=== PATIENT | female | born 1955 | race Caucasian/White ===

== ENCOUNTER 2016-12-31 10:10 | Inpatient (IN) | payer MEDICARE, OTHER ==
[~2016-12-31] VITALS: Ht 162.6 cm; Wt 70.5 kg
[~2016-12-31 10:10] MED LIST: ALBU8I INH; OMEP20TA39 PO; PRED50TA PO; TRAZ50TA4 PO; ZITH250T PO; ZOCO20TA PO
[2016-12-31 10:19] VITALS: BP 190/93; PULSE 95; RESP 16; O2SAT 99
[2016-12-31 10:29] VITALS: TEMP 98.8
[2016-12-31] MEDS ORDERED: CITA40TA4 PO (10:47)
--- NOTE | 2016-12-31 10:51 | PD ---
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 She states that she is concerned as she has had a decline in her mental status. She got worse today so she elected to come in. She states she is having a hard time taking care of her. The patient is currently on citalopram and follows with Dr. Chun. They cannot get in with them until January. The patient denies specific complaints by shaking her head no but is very difficult to get history from. PFS Past Medical History Arthritis: No Autoimmune Disease: No Blood Disorders: No Anxiety: Yes Depression: Yes Cancer: No Cardiovascular Problems: No High Cholesterol: No Cerebrovascular Accident: No Diminished Hearing: No Endocrine: No Gastrointestinal Disorders: Yes Genitourinary: No Headaches: Yes Hypertension: Yes Immune Disorder: No Implanted Vascular Access Dvce: Yes Musculoskeletal: No Neurologic: No Psychiatric: Yes Reproductive: No Respiratory: No Migraines: No Seizures: No Sleep Apnea: No Ulcer: Yes Tetanus Vaccination: Unknown Influenza Vaccination: No ?: Not Menopausal: Yes Past Surgical History Abdominal Surgery: No AICD: No Arteriovenous Shunt: No Body Medical Devices: plates in the neck from surgery Cardiac Surgery: No Ear Surgery: No Endocrine Surgery: No Eye Surgery: No Genitourinary Surgery: No Gynecologic Surgery: No Insulin Pump: No Joint Replacement: Yes (L KNEE) Oral Surgery: No Pacemaker: No Thoracic Surgery: No Other Surgery: Yes (BEAST REDUCTION, 3 CYSTS AND FATTY TUMOR AXCILLIA) Social History Alcohol Use: Yes (Occ.) Tobacco Use: No Substance Use: No Allergies-Medications (Allergen,Severity, Reaction): Coded Allergies: Nonsteroidal Anti-Inflammatory Agts (Verified Allergy, Severe, n/v, ) PT STATES THAT SHE IS NOT ALLERGIC TO NSAIDS, BUT DOES HAVE A REACTION TO SOME FORM OF STEROIDS. Pineapple (Unverified Allergy, Severe, Rash, 12/31/16) Raspberry (Unverified Allergy, Severe, Rash, 12/31/16) Doxycycline (Verified Adverse Reaction, Unknown, 12/31/16) NAUSEA Influenza Virus Vaccine (Verified Adverse Reaction, Unknown, 12/31/16) Uncoded Allergies: SOME FORM OF STEROIDS (Adverse Reaction, Unknown, PASSED OUT, 11/28/09) PT DOES NOT REMEMBER NAME OF MEDICATION, SAYS IT WAS SOME FORM OF STEROID. Reported Meds & Prescriptions Reported Meds & Active Scripts Active Reported Citalopram (Citalopram Hydrobromide) 40 Mg Tab 40 Mg PO DAILY Review of Systems Except as stated in HPI: all other systems reviewed are Neg Physical Exam Narrative GENERAL: Well-nourished, well-developed patient. SKIN: Warm and dry. HEAD: Normocephalic and atraumatic. EYES: No injection or drainage. ENT: No nasal drainage noted. NECK: Supple, trachea midline. CARDIOVASCULAR: Regular rate and rhythm RESPIRATORY: No increased effort. No accessory muscle use. GASTROINTESTINAL: Abdomen soft, non-tender, nondistended. NEUROLOGICAL: Awake. Moves all extremities. Clear speech. When asked her name she pulls out her license to repeat it off there. When asked today states she rates her date of . When asked where she was she looks at my coat and reads off [place]. Data Data Last Documented VS Vital Signs Date Time Temp Pulse Resp B/P Pulse Ox O2 Delivery O2 Flow Rate FiO2 12/31/16 12:25 73 16 147/70 98 Room Air 12/31/16 10:29 98.8 Orders Complete Blood Count With Diff (12/31/16 10:38) Basic Metabolic Panel (Bmp) (12/31/16 10:38) Urinalysis - C+S If Indicated (12/31/16 10:38) Ct Brain W/O Iv Contrast(Rout) (12/31/16 ) Iv Access Insert/Monitor (12/31/16 10:38) Ecg Monitoring (12/31/16 10:38) Psych Screen (12/31/16 10:38) Drug Screen, Random Urine (12/31/16 10:38) Alcohol (Ethanol) (12/31/16 10:38) Labs Laboratory Tests Test 12/31/16 12/31/16 11:00 11:05 Urine Collection Type CLEAN CATCH Urine Color STRAW Urine Turbidity CLEAR Urine pH 6.0 Urine Specific [place] 1.004 Urine Protein NEG mg/dL Urine Glucose (UA) NEG mg/dL Urine Ketones NEG mg/dL Urine Occult Blood NEG Urine Nitrite NEG Urine Bilirubin NEG Urine Leukocyte Esterase NEG Urine WBC 0-2 /hpf Urine Squamous Epithelial 0-5 /hpf Cells Microscopic Urinalysis Comment CULT NOT INDICATED Urine Collection Time 11:00 Urine Opiates Screen NEG Urine Barbiturates Screen NEG Urine Amphetamines Screen NEG Urine Benzodiazepines Screen NEG Urine Cocaine Screen NEG Urine Cannabinoids Screen NEG White Blood Count 5.3 TH/MM3 Red Blood Count 4.48 MIL/MM3 Hemoglobin 13.2 GM/DL Hematocrit 38.6 % Mean Corpuscular Volume 86.2 FL Mean Corpuscular Hemoglobin 29.4 PG Mean Corpuscular Hemoglobin 34.1 % Concent Red Cell Distribution Width 13.0 % Platelet Count 168 TH/MM3 Mean Platelet Volume 6.9 FL Neutrophils (%) (Auto) 70.9 % Lymphocytes (%) (Auto) 22.2 % Monocytes (%) (Auto) 5.6 % Eosinophils (%) (Auto) 0.6 % Basophils (%) (Auto) 0.7 % Neutrophils # (Auto) 3.8 TH/MM3 Lymphocytes # (Auto) 1.2 TH/MM3 Monocytes # (Auto) 0.3 TH/MM3 Eosinophils # (Auto) 0.0 TH/MM3 Basophils # (Auto) 0.0 TH/MM3 CBC Comment DIFF FINAL Differential Comment Sodium Level 141 MEQ/L Potassium Level 3.8 MEQ/L Chloride Level 105 MEQ/L Carbon Dioxide Level 29.8 MEQ/L Anion Gap 6 MEQ/L Blood Urea Nitrogen 14 MG/DL Creatinine 0.68 MG/DL Estimat Glomerular Filtration 87 ML/MIN Rate Random Glucose 97 MG/DL Calcium Level 8.7 MG/DL Ethyl Alcohol Level LESS THAN 3 MG/DL [facility] Medical Decision Making Medical Screen Exam Complete: Yes Emergency Medical Condition: Yes Medical Record Reviewed: Yes (past history confirm, prior psychiatric admission in 2013 with brief psychotic episode on Seroquel) Interpretation(s) CBC & BMP Diagram 12/31/16 11:05 Last [address] 12/31/16 0000 Signed Impressions: Service Date/Time: Saturday, December 31, 2016 11:39 - CONCLUSION: Negative for an acute process. Brannon Rebolledo MD FACR Differential Diagnosis Hyponatremia, intracranial, UTI, brief psychotic episode.... Narrative Course Will check blood work, urinalysis, CT brain and and reevaluate ed workup no acute, medically cleared at 1200 for psychiatric disposition with psych screening Diagnosis Primary Impression: Altered mental status, unspecified Meme Alvarez MD Dec 31, 2016 10:51
[2016-12-31 11:16] LABS: AUTOMATED NEUTROPHIL # 3.8 TH/MM3 (1.8-7.7); BASOPHIL % 0.7 % (0.0-2.0); EOSINOPHIL % 0.6 % (0.0-4.0); HEMATOCRIT 38.6 % (35.0-46.0); HEMO FLAGS DIFF FINAL; LYMPH % 22.2 % (9.0-44.0); LYMPHOCYTE # 1.2 TH/MM3 (1.0-4.8); MEAN CELL VOLUME 86.2 FL (80.0-100.0); MEAN CORPUSCULAR HEMOGLOBIN 29.4 PG (27.0-34.0); MEAN CORPUSCULAR HGB CONC 34.1 % (32.0-36.0); MONO % 5.6 % (0.0-8.0); NEUT % 70.9 % (16.0-70.0); PLATELET COUNT 168 TH/MM3 (150-450); RED BLOOD COUNT 4.48 MIL/MM3 (4.00-5.30); WHITE BLOOD COUNT 5.3 TH/MM3 (4.0-11.0)
[2016-12-31 11:18] LABS: BLOOD, URINE NEG (NEG); GLUCOSE,URINE NEG (NEG); KETONE, URINE NEG (NEG); NITRITE,URINE NEG (NEG)
[2016-12-31 11:24] LABS: CHLORIDE 105 MEQ/L (98-107); POTASSIUM 3.8 MEQ/L (3.5-5.1); SODIUM (NA) 141 MEQ/L (136-145)
[2016-12-31 11:26] LABS: COMMENT (UR) CULT NOT INDICATED; CULTURE IF INDICATED CULT NOT INDICATED; METHOD OF COLLECTION CLEAN CATCH; SQUAMOUS EPITHELIAL CELL URINE 0-5 /hpf (0-5); URINE COLOR STRAW (YELLW/STRAW); WBC, URINE 0-2 /hpf (0-5)
[2016-12-31 11:27] LABS: ANION GAP 6 MEQ/L (5-15); BICARBONATE 29.8 MEQ/L (21.0-32.0); BLOOD UREA NITROGEN 14 MG/DL (7-18)
[2016-12-31 11:30] LABS: GLOMERULAR FILTRATION RATE 87 ML/MIN (>89)
[2016-12-31 11:35] LABS: BARBITURATES, URINE NEG (NEG)
[2016-12-31 11:36] LABS: AMPHETAMINE, URINE NEG (NEG)
[2016-12-31 11:39] LABS: COCAINE, URINE NEG (NEG)
--- NOTE | 2016-12-31 11:58 | RADHPO ---
EXAM DATE/TIME: 12/31/2016 11:39 [facility] COMPARISON: CT BRAIN W/O CONTRAST, May 02, 2014, 15:18. INDICATIONS : Confusion for several years. Recent decline in mental status. RADIATION DOSE: 63.06 CTDIvol (mGy) MEDICAL HISTORY : Hypertension. SURGICAL HISTORY : Orthopedic surgery. ENCOUNTER: Initial ACUITY: >1 yr PAIN SCALE: 0/10 LOCATION: cranial TECHNIQUE: Multiple contiguous axial images were obtained of the head. Using automated exposure control and adjustment of the mA and/or kV according to patient size, radiation dose was kept as low as reasonably achievable to obtain optimal diagnostic quality images. FINDINGS: CEREBRUM: The ventricles are normal for age. No evidence of midline shift, mass lesion, hemorrha ge or acute infarction. No extra-axial fluid collections are seen. POSTERIOR FOSSA: The cerebellum and brainstem are intact. The 4th ventricle is midline. The cer ebellopontine angle is unremarkable. EXTRACRANIAL: The visualized portion of the orbits is intact. SKULL: The calvaria is intact. No evidence of skull fracture. CONCLUSION: Negative for an acute process. Brannon Rebolledo MD FACR on December 31, 2016 at 11:56 Board Certified Radiologist. This report was verified electronically.
[2016-12-31 12:25] VITALS: BP 147/70; PULSE 73; RESP 16; O2SAT 98
[2016-12-31] MEDS ORDERED: ALUMINUM/MAGNESIUM/SIMETH 30 ML CUP PO PRN (16:45)
[2016-12-31] MEDS ORDERED: MAGNESIUM HYDROXIDE SUSP 30 ML CUP PO PRN (16:45)
[2016-12-31 17:30] VITALS: BP 131/62; PULSE 71; RESP 18; TEMP 98.1; O2SAT 97
[2016-12-31 22:42] VITALS: BP 188/94; PULSE 65; RESP 20; TEMP 98.2; O2SAT 98
[2017-01-01 06:36] VITALS: BP 200/86; PULSE 73; RESP 18; TEMP 98.3; O2SAT 98
[2017-01-01 07:15] VITALS: BP 167/82
[2017-01-01 08:59] LABS: ANION GAP 7 MEQ/L (5-15); BICARBONATE 29.6 MEQ/L (21.0-32.0); BLOOD UREA NITROGEN 10 MG/DL (7-18); CHLORIDE 102 MEQ/L (98-107); GLOMERULAR FILTRATION RATE 83 ML/MIN (>89); LDL CHOLESTEROL 53 MG/DL (0-99); POTASSIUM 3.3 MEQ/L (3.5-5.1); SODIUM (NA) 139 MEQ/L (136-145)
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
[2017-01-01] MEDS ORDERED: MAGNESIUM HYDROXIDE SUSP 30 ML CUP PO PRN (12:00)
[2017-01-01] MEDS ORDERED: ALUMINUM/MAGNESIUM/SIMETH 30 ML CUP PO PRN (12:00)
[2017-01-01] MEDS ORDERED: hydrOXYzine HCL 50 MG TAB PO PRN (12:00)
[2017-01-01] MEDS ORDERED: ACETAMINOPHEN 325 MG TAB PO PRN (12:00)
[2017-01-01] MEDS ORDERED: diphenhydrAMINE HCL 50 MG CAP PO PRN (12:00)
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
[2017-01-01 12:48] LABS: HEMOGLOBIN A1a 1.1 %; HEMOGLOBIN A1b 1.6 %; HEMOGLOBIN Ao 86.5 %; HEMOGLOBIN LA1C 1.7 %; HEMOGLOBIN P3 3.4 %
[2017-01-01 19:45] VITALS: BP 153/78; PULSE 82; RESP 17; TEMP 98.8; O2SAT 97
[2017-01-02 06:00] VITALS: BP 143/63; PULSE 80; RESP 18; TEMP 98.2; O2SAT 95
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
[2017-01-02 08:48] LABS: AUTOMATED NEUTROPHIL # 3.3 TH/MM3 (1.8-7.7); BASOPHIL % 0.5 % (0.0-2.0); EOSINOPHIL % 0.9 % (0.0-4.0); HEMATOCRIT 40.2 % (35.0-46.0); HEMO FLAGS DIFF FINAL; LYMPH % 28.6 % (9.0-44.0); LYMPHOCYTE # 1.5 TH/MM3 (1.0-4.8); MEAN CELL VOLUME 85.1 FL (80.0-100.0); MEAN CORPUSCULAR HEMOGLOBIN 29.5 PG (27.0-34.0); MEAN CORPUSCULAR HGB CONC 34.6 % (32.0-36.0); MONO % 7.4 % (0.0-8.0); NEUT % 62.6 % (16.0-70.0); PLATELET COUNT 160 TH/MM3 (150-450); RED BLOOD COUNT 4.72 MIL/MM3 (4.00-5.30); RED CELL DISTRIBUTION WIDTH 13.9 % (11.6-17.2); WHITE BLOOD COUNT 5.3 TH/MM3 (4.0-11.0)
[2017-01-02] MEDS: CITALOPRAM HYDROBROMIDE 40 MG TAB PO SCH (09:09)
[2017-01-02 09:14] LABS: ALKALINE PHOSPHATASE 67 U/L (45-117); ALT (GPT) 23 U/L (10-53); ANION GAP 9 MEQ/L (5-15); AST (GOT) 13 U/L (15-37); BICARBONATE 28.8 MEQ/L (21.0-32.0); BLOOD UREA NITROGEN 13 MG/DL (7-18); CHLORIDE 100 MEQ/L (98-107); GLOMERULAR FILTRATION RATE 82 ML/MIN (>89); POTASSIUM 3.5 MEQ/L (3.5-5.1); SODIUM (NA) 138 MEQ/L (136-145); TOTAL BILIRUBIN ADULT 0.5 MG/DL (0.2-1.0)
--- NOTE | 2017-01-02 13:42 | PD.PN.STU ---
Subjective Remarks Patient seen in day room by SHYAM Stover. Conversation is somewhat limited on the patient's part. She states she is feeling down but overall is feeling better than yesterday. She reports sleeping very well last night, but cannot indicate how many hours she slept. She also states her appetite is good as she ate both breakfast and lunch. Objective Vitals Vital Signs Date Time Temp Pulse Resp B/P Pulse Ox O2 Delivery O2 Flow Rate FiO2 01/02/17 06:00 98.2 80 18 143/63 95 01/01/17 19:45 98.8 82 17 153/78 97 I/O 01/01/17 01/01/17 01/01/17 01/02/17 01/02/17 01/02/17 07:00 15:00 23:00 07:00 15:00 23:00 Intake Total 1200 ml 480 ml 0 ml 960 ml Balance 1200 ml 480 ml 0 ml 960 ml Intake Oral 1200 ml 480 ml 0 ml 960 ml # Voids 1 2 1 1 1 Result Diagram: 01/02/17 0730 01/02/17 0730 Objective Remarks Patient is a 61 yo female appearing older than her stated age, alert, orientation questionable, interviewed while sitting in the day room watching a movie. She was dressed appropriately and maintaining basic hygiene although she appears mildly disheveled with unkempt hair. She initially did not acknowledge my presence and stood up to help another immobile patient clean up a spilled drink. She then engaged in conversation, although limited. Her eye contact was fair with rather coordinated movements of her extremities. Her mood was described as depressed and her affect was appropriate for that statement, being rather labile. She was smiling when talking about food and sleep but quickly became tearful and fearful when talking about her 3 dogs at home. Her speech was moderate volume, decreased clarity and quantity, normally answered in short one-word phrases with some mild echolalia present. Her attention and concentration was involved and short term memory is intact. She does not appear to be oriented to place, time. Her though patterns were unclear. She has poor insight and judgment. Alert: Yes [place]: Person Mood: Sad Affect: Labile Memory Intact: Comment (impaired) Hallucinations: None Delusions: No Delusion Type: No Suicidal: Ideation (denies) Homicidal: Ideation (denies) Insight/Judgement: Very poor A/P Assessment and Plan Impression: 61 year old female with PMHx of prior brief psychotic episodes, currently experiencing exacerbation of major depressive disorder with marked bereavement over the loss of her mother last month. Problem list: MDD acute exacerbation, hypertension Plan: Continue citalopram 40 mg and check on contact brother to gain further insight. LOS: TBD by medical team and legal entities based on patients progress Justification: At this time, patient would likely decompensate if placed in a lower level of care Discharge Planning To be determined. Jolanta Bernard M3 Jan 02, 2017 13:42
--- NOTE | 2017-01-02 14:47 | HHI.PYPN ---
Subjective Remarks Patient seen in her room with nurse Daisy and medical student Jolanta, patient initially calm though diffusely confused with some vague disorientation as to time place and situation. However on further talking with their asking about her pet dogs at home patient became quite anxious tremulous tearful intense and labile list as if appearing to be having a panic attack. Though there was a impression of psychosis with that also. Reviewing admission from pleasant 14 patient was discharged on low doses of Seroquel will continue Seroquel 25 mg 3 times a day at this time Review of Systems Except as stated in HPI: all other systems reviewed are Neg Objective Alert: Yes [place]: Person Mood: Agitated, Angry, Anxious, Calm, Depressed Affect: Labile Memory Intact: Comment Hallucinations: Other (poor denies) Delusions: Yes Delusion Type: Paranoid (vaguely) Suicidal: Ideation (denies) Homicidal: Ideation (denies) Insight/Judgement Poor Labs Test 01/02/17 07:30 White Blood Count 5.3 TH/MM3 Red Blood Count 4.72 MIL/MM3 Hemoglobin 13.9 GM/DL Hematocrit 40.2 % Mean Corpuscular Volume 85.1 FL Mean Corpuscular Hemoglobin 29.5 PG Mean Corpuscular Hemoglobin 34.6 % Concent Red Cell Distribution Width 13.9 % Platelet Count 160 TH/MM3 Mean Platelet Volume 7.7 FL Neutrophils (%) (Auto) 62.6 % Lymphocytes (%) (Auto) 28.6 % Monocytes (%) (Auto) 7.4 % Eosinophils (%) (Auto) 0.9 % Basophils (%) (Auto) 0.5 % Neutrophils # (Auto) 3.3 TH/MM3 Lymphocytes # (Auto) 1.5 TH/MM3 Monocytes # (Auto) 0.4 TH/MM3 Eosinophils # (Auto) 0.0 TH/MM3 Basophils # (Auto) 0.0 TH/MM3 CBC Comment DIFF FINAL Differential Comment Sodium Level 138 MEQ/L Potassium Level 3.5 MEQ/L Chloride Level 100 MEQ/L Carbon Dioxide Level 28.8 MEQ/L Anion Gap 9 MEQ/L Blood Urea Nitrogen 13 MG/DL Creatinine 0.72 MG/DL Estimat Glomerular Filtration 82 ML/MIN Rate Random Glucose 90 MG/DL Calcium Level 9.0 MG/DL Total Bilirubin 0.5 MG/DL Aspartate Amino Transf 13 U/L (AST/SGOT) Alanine Aminotransferase 23 U/L (ALT/SGPT) Alkaline Phosphatase 67 U/L Total Protein 6.9 GM/DL Albumin 3.8 GM/DL Free Thyroxine 0.90 NG/DL Thyroid Stimulating Hormone 1.270 uIU/ML 3rd Gen Vitals/IOs Vital Signs Date Time Temp Pulse Resp B/P Pulse Ox O2 Delivery O2 Flow Rate FiO2 01/02/17 06:00 98.2 80 18 143/63 95 12/31/16 17:30 Room Air Intake and Output 01/01/17 01/01/17 01/02/17 08:00 16:00 00:00 Intake Total 1200 ml 480 ml Balance 1200 ml 480 ml Assessment & Plan Problem List: (1) Brief psychotic disorder ICD Code: F23 Assessment & Plan Estimated LOS: days patient continues quite labile anxious with psychotic features. 2 medication adjustment above Justification for Cont. Inpt. At this time patient will decompensate placed in a lower level of care Discharge Planning To be determined Request HC Surrog/Guard Advoc?: Yes Rai Huggins MD Jan 02, 2017 14:47
[2017-01-02] MEDS ORDERED: QUEtiapine FUMARATE 25 MG TAB PO SCH (18:00)
[2017-01-02 18:08] VITALS: BP 128/68; PULSE 73; RESP 18; TEMP 99; O2SAT 96
[2017-01-02] MEDS: ACETAMINOPHEN 325 MG TAB PO PRN (23:44)
[2017-01-03 06:09] VITALS: BP 102/58; PULSE 71; RESP 18; TEMP 97.7; O2SAT 100
[2017-01-03] MEDS: CITALOPRAM HYDROBROMIDE 40 MG TAB PO SCH (09:00)
--- NOTE | 2017-01-03 11:38 | HHI.HP ---
History of Present Illness Service Primary Care Primary Care Physician Jonel Guidry, DO Admission Diagnosis MDD Diagnoses: (1) Altered mental status, unspecified Diagnosis: Principal (2) Major depressive disorder, recurrent episode, moderate with mixed features Diagnosis: Principal (3) Brief psychotic disorder Diagnosis: Principal (4) Gout Diagnosis: Secondary (5) Osteoarthritis Diagnosis: Secondary (6) Hypertension Diagnosis: Secondary (7) Dyslipidemia Diagnosis: Secondary History of Present Illness 62-year-old female presents with a decline in her mental status and began to have progressive difficulty with self care. Her history is difficult to obtain and the story changes with each interviewer. The patient currently follows with Dr. Chun for a PMH of MDD, htn, hlp, gout, peripheral neuropathy and RLS. She was previously on citalopram but has been somewhat non-compliant with follow-up. She states that she has no living family and denies a caregiver, but was brought to the ED by her caregiver, per Dr. Alvarez's note. Today, she is mostly cooperative, but still guarded. She states she wants to go home, but cannot tell me where home is. We have been consulted for medical management of her comorbidities. Review of Systems ROS Limitations: Poor Historian, Other (Unreliable d/t psychiatric disease, but denies any discomfort in 12 system review.) Past Family Social History Allergies: Coded Allergies: Nonsteroidal Anti-Inflammatory Agts (Verified Allergy, Severe, n/v, ) PT STATES THAT SHE IS NOT ALLERGIC TO NSAIDS, BUT DOES HAVE A REACTION TO SOME FORM OF STEROIDS. Pineapple (Unverified Allergy, Severe, Rash, 12/31/16) Raspberry (Unverified Allergy, Severe, Rash, 12/31/16) Doxycycline (Verified Adverse Reaction, Unknown, 12/31/16) NAUSEA Influenza Virus Vaccine (Verified Adverse Reaction, Unknown, 12/31/16) Uncoded Allergies: SOME FORM OF STEROIDS (Adverse Reaction, Unknown, PASSED OUT, 11/28/09) PT DOES NOT REMEMBER NAME OF MEDICATION, SAYS IT WAS SOME FORM OF STEROID. Past Medical History Osteoarthritis Hyperlipidemia Hypertension Gout Neuropathy Major depressive disorder Restless leg syndrome Past Surgical History LTKA Cervical diskectomy with fusion in with redo. Excision of 3 breast cysts in Lipoma removal from R axilla Tonsillectomy and adenoidectomy Reported Medications Reported Meds & Active Scripts Active Reported Citalopram (Citalopram Hydrobromide) 40 Mg Tab 40 Mg PO DAILY Active Ordered Medications Current Medications Medications (Trade) Dose Ordered Sig/Minal Route Start Time Stop Time Status Last Admin (Tylenol) 650 mg Q4H PRN PO 12/31/16 16:45 (Milk Of Magnesia Liq) 30 ml DAILY PRN PO 12/31/16 16:45 (Mag-Al Plus Susp Liq) 30 ml Q6H PRN PO 12/31/16 16:45 (CeleXA) 40 mg DAILY PO 01/02/17 09:00 Hold 01/02/17 09:09 (Benadryl) 50 mg HS PRN PO 01/01/17 12:00 Hold (Atarax) 50 mg Q6H PRN PO 01/01/17 12:00 Hold (SEROquel) 25 mg TID PO 01/02/17 18:00 Hold Family History Both parents . One brother reportedly from renal cancer, per records. Social History Quit smoking in 1973, denies any illicits or ETOH Physical Exam Vital Signs Vital Signs Date Time Temp Pulse Resp B/P Pulse Ox O2 Delivery O2 Flow Rate FiO2 01/03/17 06:09 97.7 71 18 102/58 100 01/02/17 18:08 99.0 73 18 128/68 96 Physical Exam GENERAL: This is a well-nourished, well-developed patient, in no apparent distress, resting in bed. SKIN: No rashes, ecchymoses or lesions. Cool and dry. HEAD: Atraumatic. Normocephalic. EYES: Pupils equal round and reactive. Extraocular motions intact. No scleral icterus. No injection or drainage. ENT: Throat without erythema, tonsillar hypertrophy or exudate. Uvula midline. Airway patent. NECK: Trachea midline. No JVD or lymphadenopathy. Supple, nontender. CARDIOVASCULAR: Regular rate and rhythm without murmurs, gallops, or rubs. RESPIRATORY: Clear to auscultation. Breath sounds equal bilaterally. No wheezes , rales, or rhonchi. Diminished at bases. GASTROINTESTINAL: Abdomen soft, non-tender, nondistended. No hepato-splenomegaly , or palpable masses. No guarding. MUSCULOSKELETAL: Extremities without clubbing, cyanosis, trace-1+ LE edema. No calf tenderness. NEUROLOGICAL: Awake and alert. Normal speech. PSYCHIATRY: Guarded, answers questions, but answers vary from previous. Result Diagram: 01/02/17 0730 01/02/17 0730 Imaging Last Impressions Head CT 12/31/16 0000 Signed Impressions: Service Date/Time: Saturday, December 31, 2016 11:39 - CONCLUSION: Negative for an acute process. Brannon Rebolledo MD FACR Assessment and Plan Problem List: (1) Altered mental status, unspecified Status: Acute Plan: Still guarded, but appears oriented to self, place and time. (2) Major depressive disorder, recurrent episode, moderate with mixed features Status: Chronic Plan: Management per Dr. Huggins (3) Osteoarthritis Status: Chronic Plan: C/O some hand discomfort. States an allergy to NSAIDS, which cause hallucinations. Can use tylenol PRN. (4) Hypertension Status: Chronic Plan: Exacerbated by mood disorder, not on medications. When calm, BP remains in the low normal range. Manage triggers. (5) Dyslipidemia Status: Resolved Plan: Well controlled on diet. Not on statins. Assessment and Plan Pt. remains unable to care for herself. Will follow with Dr. Suazo, appreciate the consultation. D/W pt., RN, Dr. Guidry. Problem Qualifiers (1) Osteoarthritis: Qualified Code: M15.9 - Osteoarthritis of multiple joints, unspecified osteoarthritis type (2) Hypertension: Qualified Code: I10 - Essential hypertension Babita Bennett Jan 03, 2017 11:38
[2017-01-03 18:00] VITALS: BP 155/101; PULSE 83; RESP 18; TEMP 97.9; O2SAT 98
--- NOTE | 2017-01-03 19:23 | HHI.PYPN ---
Subjective Remarks Pt seen and discussed with staff. Pt remains bizarre with significant mood lability. No aggression. No SI/HI Objective Alert: Yes [place]: Person Mood: Other (labile) Affect: Other (bizarre, elevated affect) Memory Intact: Comment Hallucinations: Other (appears internally preoccupied) Delusions: Yes Delusion Type: Paranoid (vaguely) Suicidal: Ideation (denies) Homicidal: Ideation (denies) Insight/Judgement poor Vitals/IOs Vital Signs Date Time Temp Pulse Resp B/P Pulse Ox O2 Delivery O2 Flow Rate FiO2 01/03/17 18:00 97.9 83 18 155/101 98 12/31/16 17:30 Room Air Intake and Output 01/02/17 01/02/17 01/03/17 08:00 16:00 00:00 Intake Total 0 ml 1320 ml 480 ml Balance 0 ml 1320 ml 480 ml Assessment & Plan Problem List: (1) Brief psychotic disorder ICD Code: F23 Assessment & Plan Continue current tx plan. Estimated LOS: days Justification for Cont. Inpt. 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
[2017-01-04 05:13] VITALS: BP_SYST 103; BP_SYST 132; BP_DIAS 52; BP_DIAS 69; PULSE 65; PULSE 70; RESP 18; TEMP 97.8; TEMP 98.1; O2SAT 97; O2SAT 98
--- NOTE | 2017-01-04 08:55 | HHI.PR ---
Subjective Remarks Up OOB, guarded responses, confused. Objective Vital Signs Date Time Temp Pulse Resp B/P Pulse Ox O2 Delivery O2 Flow Rate FiO2 01/04/17 05:13 98.1 65 18 103/52 98 01/03/17 18:00 97.9 83 18 155/101 98 I/O 01/03/17 01/03/17 01/03/17 01/04/17 01/04/17 01/04/17 07:00 15:00 23:00 07:00 15:00 23:00 Intake Total 0 ml 480 ml 1680 ml 0 ml Balance 0 ml 480 ml 1680 ml 0 ml Intake Oral 0 ml 480 ml 1680 ml 0 ml # Voids 1 2 2 Result Diagram: 01/02/17 0730 01/02/17 0730 Imaging Last Impressions Head CT 12/31/16 0000 Signed Impressions: Service Date/Time: Saturday, December 31, 2016 11:39 - CONCLUSION: Negative for an acute process. Brannon Rebolledo MD FACR Objective Remarks GENERAL: Well-nourished, well-developed patient. SKIN: Warm and dry. HEAD: Normocephalic. EYES: No scleral icterus. No injection or drainage. NECK: Supple, trachea midline. No JVD or lymphadenopathy. CARDIOVASCULAR: Regular rate and rhythm without murmurs, gallops, or rubs. RESPIRATORY: Breath sounds equal bilaterally. No accessory muscle use. GASTROINTESTINAL: Abdomen soft, non-tender, nondistended. EXTREMITIES: No cyanosis, or edema. NEUROLOGICAL: Awake, alert, and oriented to self, intermittently to place. Non- focal. PSYCHIATRIC: greets examiner with smile, answers guarded, not making sense. Medications and IVs Current Medications Medications (Trade) Dose Ordered Sig/Minal Route Start Time Stop Time Status Last Admin (Tylenol) 650 mg Q4H PRN PO 12/31/16 16:45 (Milk Of Magnesia Liq) 30 ml DAILY PRN PO 12/31/16 16:45 (Mag-Al Plus Susp Liq) 30 ml Q6H PRN PO 12/31/16 16:45 (CeleXA) 40 mg DAILY PO 01/02/17 09:00 Hold 01/02/17 09:09 (Benadryl) 50 mg HS PRN PO 01/01/17 12:00 Hold (Atarax) 50 mg Q6H PRN PO 01/01/17 12:00 Hold (SEROquel) 25 mg TID PO 01/02/17 18:00 Hold Assessment and Plan Problem List: (1) Altered mental status, unspecified Status: Acute Plan: Still guarded, but appears oriented to self and intermittently to place. Answers change from exam to exam. (2) Major depressive disorder, recurrent episode, moderate with mixed features Status: Chronic Plan: Management per Dr. Huggins. Due to pts incapacity and lack of POA/ family contact, Celexa and seroquel stopped as no consent could be given. Pending court appointed guardian. (3) Osteoarthritis Status: Chronic Plan: C/O some hand discomfort. States an allergy to NSAIDS, which cause hallucinations, but in another interview, states she is not. Can use tylenol PRN. (4) Hypertension Status: Chronic Plan: Exacerbated by mood disorder, not on medications. When calm, BP remains in the low normal range. Manage triggers. (5) Dyslipidemia Status: Resolved Plan: Well controlled on diet. Not on statins. Assessment and Plan Pt. remains unable to care for herself. Will follow with Dr. Suazo, appreciate the consultation. D/W pt., RN, Dr. Guidry. Problem Qualifiers (1) Osteoarthritis: Qualified Code: M15.9 - Osteoarthritis of multiple joints, unspecified osteoarthritis type (2) Hypertension: Qualified Code: I10 - Essential hypertension Babita Bennett Jan 04, 2017 08:55
--- NOTE | 2017-01-04 19:41 | HHI.PYPN ---
Subjective Remarks Pt seen and discussed with staff. She remains bizarre. She has been selectively mute at times today. No aggression. She denies SI/HI. Objective Alert: Yes [place]: Person Mood: Other (labile) Affect: Other (bizarre, elevated affect) Memory Intact: Comment Hallucinations: Other (appears internally preoccupied) Delusions: Yes Delusion Type: Paranoid (vaguely) Suicidal: Ideation (denies) Homicidal: Ideation (denies) Insight/Judgement poor Vitals/IOs Vital Signs Date Time Temp Pulse Resp B/P Pulse Ox O2 Delivery O2 Flow Rate FiO2 01/04/17 05:13 98.1 65 18 103/52 98 12/31/16 17:30 Room Air Intake and Output 01/03/17 01/03/17 01/04/17 08:00 16:00 00:00 Intake Total 240 ml 720 ml 1200 ml Balance 240 ml 720 ml 1200 ml Assessment & Plan Problem List: (1) Brief psychotic disorder ICD Code: F23 Assessment & Plan Continue current tx plan Estimated LOS: days Justification for Cont. Inpt. impairments in self care and reality construction Request HC Surrog/Guard Advoc?: Yes Olivia Forbes MD Jan 04, 2017 19:41
[2017-01-04 20:35] VITALS: BP 138/87; PULSE 82; RESP 22; TEMP 97.6; O2SAT 97
[2017-01-05 05:42] VITALS: BP 134/69; PULSE 68; RESP 16; TEMP 98; O2SAT 96
--- NOTE | 2017-01-05 13:48 | HHI.PR ---
Subjective Remarks Up OOB, wants to go home, very anxious. Objective Vital Signs Date Time Temp Pulse Resp B/P Pulse Ox O2 Delivery O2 Flow Rate FiO2 01/05/17 05:42 98.0 68 16 134/69 96 01/04/17 20:35 97.6 82 22 138/87 97 I/O 01/04/17 01/04/17 01/04/17 01/05/17 01/05/17 01/05/17 07:00 15:00 23:00 07:00 15:00 23:00 Intake Total 0 ml 960 ml 0 ml Balance 0 ml 960 ml 0 ml Intake Oral 0 ml 960 ml 0 ml # Voids 2 1 # Bowel Movements 0 Result Diagram: 01/02/1772901/02/17 0730 Objective Remarks GENERAL: Well-nourished, well-developed patient. SKIN: Warm and dry. HEAD: Normocephalic. EYES: No scleral icterus. No injection or drainage. NECK: Supple, trachea midline. No JVD or lymphadenopathy. CARDIOVASCULAR: Regular rate and rhythm without murmurs, gallops, or rubs. RESPIRATORY: Breath sounds equal bilaterally. No accessory muscle use. GASTROINTESTINAL: Abdomen soft, non-tender, nondistended. EXTREMITIES: No cyanosis, or edema. NEUROLOGICAL: Awake, alert, and oriented to self, intermittently to place. Non- focal. PSYCHIATRIC: tearful, wants to go home with "Mo". Medications and IVs Current Medications Medications (Trade) Dose Ordered Sig/Minal Route Start Time Stop Time Status Last Admin (Tylenol) 650 mg Q4H PRN PO 12/31/16 16:45 (Milk Of Magnesia Liq) 30 ml DAILY PRN PO 12/31/16 16:45 (Mag-Al Plus Susp Liq) 30 ml Q6H PRN PO 12/31/16 16:45 (CeleXA) 40 mg DAILY PO 01/02/17 09:00 Hold 01/02/17 09:09 (Benadryl) 50 mg HS PRN PO 01/01/17 12:00 Hold (Atarax) 50 mg Q6H PRN PO 01/01/17 12:00 Hold (SEROquel) 25 mg TID PO 01/02/17 18:00 Hold Assessment and Plan Problem List: (1) Altered mental status, unspecified Status: Acute Plan: Very anxioius today, tearful, wants to go home. Alert, recognizes examiner, pacing. (2) Major depressive disorder, recurrent episode, moderate with mixed features Status: Chronic Plan: Management per Dr. Huggins. Due to pts incapacity and lack of POA/ family contact, Celexa and seroquel stopped as no consent could be given. Pending court appointed guardian. (3) Osteoarthritis Status: Chronic Plan: Can use tylenol PRN. (4) Hypertension Status: Chronic Plan: Exacerbated by mood disorder, not on medications. When calm, BP remains in the low normal range. Manage triggers. (5) Dyslipidemia Status: Resolved Plan: Well controlled on diet. Not on statins. Assessment and Plan Pt. remains unable to care for herself. D/W RN the possibility of expediting court date for guardian appointment to allow medication of pt. anxiety. Will follow with Dr. Suazo, appreciate the consultation. D/W pt., RN, Dr. Guidry. Problem Qualifiers (1) Osteoarthritis: Qualified Code: M15.9 - Osteoarthritis of multiple joints, unspecified osteoarthritis type (2) Hypertension: Qualified Code: I10 - Essential hypertension Babita Bennett Jan 05, 2017 13:48
--- NOTE | 2017-01-05 14:52 | HHI.PYPN ---
Subjective Remarks Patient discussed with treatment team and medical student Jolanta, chart reviewed, patient seen on unit. Patient remains isolative quite labile at times angry screaming tearful and somewhat aggressive. At present time we do not have pressure from health care surrogate to offer scheduled medications. Also behaviors have not been to such degree that the justifies as needed or ETO medication. We await permission from [place] with guardian advocate to show more aggressive medication management Review of Systems Except as stated in HPI: all other systems reviewed are Neg Objective Alert: Yes [place]: Person Mood: Other (labile) Affect: Other (bizarre, elevated affect) Memory Intact: Comment Hallucinations: Other (appears internally preoccupied) Delusions: Yes Delusion Type: Paranoid (vaguely) Suicidal: Ideation (denies) Homicidal: Ideation (denies) Insight/Judgement Very poor Vitals/IOs Vital Signs Date Time Temp Pulse Resp B/P Pulse Ox O2 Delivery O2 Flow Rate FiO2 01/05/17 05:42 98.0 68 16 134/69 96 Intake and Output 01/04/17 01/04/17 01/05/17 08:00 16:00 00:00 Intake Total 0 ml 960 ml Balance 0 ml 960 ml Assessment & Plan Problem List: (1) Brief psychotic disorder ICD Code: F23 Assessment & Plan Estimated LOS: days patient remained psychotic irritable isolate to labile and at times somewhat aggressive. We continue to wait appointment of guardian advocate to start schedule medications. Justification for Cont. Inpt. At this time patient would significantly decompensate if placed in the lower level of care Discharge Planning To be determined Request HC Surrog/Guard Advoc?: Yes Rai Huggins MD Jan 05, 2017 14:52
[2017-01-05] MEDS: QUEtiapine FUMARATE 25 MG TAB PO SCH (17:16)
[2017-01-05 18:00] VITALS: BP 146/83; PULSE 100; RESP 18; TEMP 97.1; O2SAT 96
--- NOTE | 2017-01-05 19:17 | HHI.PR ---
Subjective Remarks pt doing well medically no new co Objective Vital Signs Date Time Temp Pulse Resp B/P Pulse Ox O2 Delivery O2 Flow Rate FiO2 01/05/17 18:00 97.1 100 18 146/83 96 01/05/17 05:42 98.0 68 16 134/69 96 01/04/17 20:35 97.6 82 22 138/87 97 I/O 01/04/17 01/04/17 01/04/17 01/05/17 01/05/17 01/05/17 07:00 15:00 23:00 07:00 15:00 23:00 Intake Total 0 ml 960 ml 0 ml 840 ml Balance 0 ml 960 ml 0 ml 840 ml Intake Oral 0 ml 960 ml 0 ml 840 ml # Voids 2 1 2 # Bowel Movements 0 Result Diagram: 01/02/17 0730 01/02/17 0730 Other Results GENERAL: SKIN: Warm and dry. HEAD: Atraumatic. Normocephalic. EYES: Pupils equal and round. No scleral icterus. No injection or drainage. ENT: No nasal bleeding or discharge. Mucous membranes pink and moist. NECK: Trachea midline. No JVD. CARDIOVASCULAR: Regular rate and rhythm. RESPIRATORY: No accessory muscle use. Clear to auscultation. Breath sounds equal bilaterally. GASTROINTESTINAL: Abdomen soft, non-tender, nondistended. Hepatic and splenic margins not palpable. MUSCULOSKELETAL: Extremities without clubbing, cyanosis, or edema. No obvious deformities. NEUROLOGICAL: Awake and alert. No obvious cranial nerve deficits. Motor grossly within normal limits. Five out of 5 muscle strength in the arms and legs. Normal speech. PSYCHIATRIC: a bit hyper today poor cognitionl. Medications and IVs Current Medications Medications (Trade) Dose Ordered Sig/Minal Route PRN Reason Start Time Stop Time Status Last Admin Dose Admin Acetaminophen (Tylenol) 650 mg Q4H PRN PO Pain 1-5 or Temp >101F 12/31/16 16:45 Magnesium Hydroxide (Milk Of Magnesia Liq) 30 ml DAILY PRN PO CONSTIPATION 12/31/16 16:45 Al Hydrox/Mg Hydrox/Simethicone (Mag-Al Plus Susp Liq) 30 ml Q6H PRN PO DYSPEPSIA 12/31/16 16:45 Citalopram Hydrobromide (CeleXA) 40 mg DAILY PO 01/06/17 16:00 Diphenhydramine HCl (Benadryl) 50 mg HS PRN PO INSOMNIA 01/05/17 15:15 Hydroxyzine HCl (Atarax) 50 mg Q6H PRN PO ANXIETY 01/05/17 15:15 Quetiapine Fumarate (SEROquel) 25 mg TID PO 01/05/17 18:00 01/05/17 17:16 Assessment and Plan Discussed Condition With patient bp stable no need for medical intervention at this time Discharge Planning home Jonel Guidry DO Jan 05, 2017 19:17
[2017-01-06 06:15] VITALS: BP 103/60; PULSE 68; RESP 16; TEMP 97.8; O2SAT 97
[2017-01-06] MEDS: QUEtiapine FUMARATE 25 MG TAB PO SCH ×2 (09:52→21:37)
--- NOTE | 2017-01-06 10:25 | HHI.PYPN ---
Subjective Remarks Patient seen in [place] with nurse Daniella and medical student Jolanta, patient is markedly confused labile and irritable T continues to isolate also she does denies hearing any auditory hallucinations I do question somewhat. Patient compliant with medications. At this time will increase patient's schedule Seroquel from 25 mg 3 times a day to 50 mg twice a day Review of Systems Except as stated in HPI: all other systems reviewed are Neg Objective Alert: Yes [place]: Person Mood: Other (labile) Affect: Other (bizarre, elevated affect) Memory Intact: Comment Hallucinations: Other (appears internally preoccupied) Delusions: Yes Delusion Type: Paranoid (vaguely) Suicidal: Ideation (denies) Homicidal: Ideation (denies) Insight/Judgement Very poor Vitals/IOs Vital Signs Date Time Temp Pulse Resp B/P Pulse Ox O2 Delivery O2 Flow Rate FiO2 01/06/17 06:15 97.8 68 16 103/60 97 Intake and Output 01/05/17 01/05/17 01/06/17 08:00 16:00 00:00 Intake Total 0 ml 840 ml 960 ml Balance 0 ml 840 ml 960 ml Assessment & Plan Problem List: (1) Brief psychotic disorder ICD Code: F23 Assessment & Plan Estimated LOS: days patient remains psychotic irritable and labile. She medication adjustment above Justification for Cont. Inpt. At this time patient would decompensate placed in a lower level of care Discharge Planning Be determined Request HC Surrog/Guard Advoc?: Yes Rai Huggins MD Jan 06, 2017 10:25
[2017-01-06] MEDS: CITALOPRAM HYDROBROMIDE 40 MG TAB PO SCH (16:14)
[2017-01-06 18:19] VITALS: BP 131/77; PULSE 80; RESP 16; TEMP 98.1; O2SAT 99
[2017-01-07 06:28] VITALS: BP 108/58; PULSE 73; RESP 16; TEMP 97.8; O2SAT 98
[2017-01-07] MEDS: QUEtiapine FUMARATE 25 MG TAB PO SCH ×2 (09:38→20:54)
[2017-01-07] MEDS: CITALOPRAM HYDROBROMIDE 40 MG TAB PO SCH (09:38)
--- NOTE | 2017-01-07 11:07 | HHI.PYPN ---
Subjective Remarks Patient seen on unit in room with nurse Bren, patient continues somewhat intrusive needing ED labile tearful, continues markedly disoriented and confused. First states was to go home then with her caregiver patient shows minimal socialization of the unit. Patient scheduled for [place] tomorrow. For now continue treatment Review of Systems Except as stated in HPI: all other systems reviewed are Neg Objective Alert: Yes [place]: Person Mood: Other (labile) Affect: Other (bizarre, elevated affect) Memory Intact: Comment Hallucinations: Other (appears internally preoccupied) Delusions: Yes Delusion Type: Paranoid (vaguely) Suicidal: Ideation (denies) Homicidal: Ideation (denies) Insight/Judgement Very poor Vitals/IOs Vital Signs Date Time Temp Pulse Resp B/P Pulse Ox O2 Delivery O2 Flow Rate FiO2 01/07/17 06:28 97.8 73 16 108/58 98 Intake and Output 01/06/17 01/06/17 01/07/17 08:00 16:00 00:00 Intake Total 480 ml 360 ml 1680 ml Balance 480 ml 360 ml 1680 ml Assessment & Plan Problem List: (1) Brief psychotic disorder ICD Code: F23 Assessment & Plan Estimated LOS: days patient continues confused sad intrusive tearful and at times labile. Compliant medications. Patient scheduled for [place] tomorrow Justification for Cont. Inpt. At this time patient will decompensate with placed in a lower level of care Discharge Planning To be determined Request HC Surrog/Guard Advoc?: Yes Rai Huggins MD Jan 07, 2017 11:07
[2017-01-07 18:00] VITALS: BP 106/54; PULSE 82; RESP 16; TEMP 98.4; O2SAT 96
[2017-01-08 05:50] VITALS: BP 111/58; PULSE 65; RESP 16; TEMP 98.1; O2SAT 98
[2017-01-08] MEDS: CITALOPRAM HYDROBROMIDE 40 MG TAB PO SCH (09:31)
[2017-01-08] MEDS: QUEtiapine FUMARATE 25 MG TAB PO SCH ×2 (09:31→20:36)
--- NOTE | 2017-01-08 14:25 | HHI.PR ---
Subjective Remarks Up OOB, wants to go home, very anxious. Objective Vital Signs Date Time Temp Pulse Resp B/P Pulse Ox O2 Delivery O2 Flow Rate FiO2 01/08/17 05:50 98.1 65 16 111/58 98 01/07/17 18:00 98.4 82 16 106/54 96 I/O 01/07/17 01/07/17 01/07/17 01/08/17 01/08/17 01/08/17 07:00 15:00 23:00 07:00 15:00 23:00 Intake Total 1080 ml 100 ml 840 ml 100 ml Balance 1080 ml 100 ml 840 ml 100 ml Intake Oral 1080 ml 100 ml 840 ml 100 ml # Voids 3 3 2 1 Objective Remarks GENERAL: Well-nourished, well-developed patient. SKIN: Warm and dry. HEAD: Normocephalic. EYES: No scleral icterus. No injection or drainage. NECK: Supple, trachea midline. No JVD or lymphadenopathy. CARDIOVASCULAR: Regular rate and rhythm without murmurs, gallops, or rubs. RESPIRATORY: Breath sounds equal bilaterally. No accessory muscle use. GASTROINTESTINAL: Abdomen soft, non-tender, nondistended. EXTREMITIES: No cyanosis, or edema. NEUROLOGICAL: Awake, alert, and oriented to self, intermittently to place. Non- focal. PSYCHIATRIC: tearful, wants to go home with "Mo". Medications and IVs Current Medications Medications (Trade) Dose Ordered Sig/Minal Route Start Time Stop Time Status Last Admin (Tylenol) 650 mg Q4H PRN PO 12/31/16 16:45 (Milk Of Magnesia Liq) 30 ml DAILY PRN PO 12/31/16 16:45 (Mag-Al Plus Susp Liq) 30 ml Q6H PRN PO 12/31/16 16:45 (CeleXA) 40 mg DAILY PO 01/06/17 16:00 01/08/17 09:31 (Benadryl) 50 mg HS PRN PO 01/05/17 15:15 (Atarax) 50 mg Q6H PRN PO 01/05/17 15:15 (SEROquel) 50 mg BID PO 01/06/17 21:00 01/08/17 09:31 Assessment and Plan Problem List: (1) Altered mental status, unspecified Status: Acute Plan: Being discharged home with paradichlorobenzene tender today per my DW RN. (2) Major depressive disorder, recurrent episode, moderate with mixed features Status: Chronic Plan: Management per Dr. Huggins. On Celexa, seroques, atarax. (3) Osteoarthritis Status: Chronic Plan: Can use tylenol PRN. (4) Hypertension Status: Chronic Plan: Exacerbated by mood disorder, not on medications. When calm, BP remains in the low normal range. Manage triggers. (5) Dyslipidemia Status: Resolved Plan: Well controlled on diet. Not on statins. Assessment and Plan Medically stable for discharge. F/U with Dr. Guidry in 1 week. D/W pt., RN, Dr. Guidry. Problem Qualifiers (1) Osteoarthritis: Qualified Code: M15.9 - Osteoarthritis of multiple joints, unspecified osteoarthritis type (2) Hypertension: Qualified Code: I10 - Essential hypertension Babita Bennett Jan 08, 2017 14:25
--- NOTE | 2017-01-08 14:45 | HHI.PYPN ---
Subjective Remarks Patient seen in [place] today with retained by Judge Forbes. There is marked concern about confused history related to this lady her living situation and her caregivers. Judge Forbes recommended that we do further investigation perhaps having DCF be involved. Otherwise patient remains labile tearful quite needing, compliant medications Review of Systems Except as stated in HPI: all other systems reviewed are Neg Objective Alert: Yes [place]: Person Mood: Other (labile) Affect: Other (bizarre, elevated affect) Memory Intact: Comment Hallucinations: Other (appears internally preoccupied) Delusions: Yes Delusion Type: Paranoid (vaguely) Suicidal: Ideation (denies) Homicidal: Ideation (denies) Insight/Judgement Very poor Vitals/IOs Vital Signs Date Time Temp Pulse Resp B/P Pulse Ox O2 Delivery O2 Flow Rate FiO2 01/08/17 05:50 98.1 65 16 111/58 98 Intake and Output 01/07/17 01/07/17 01/08/17 08:00 16:00 00:00 Intake Total 120 ml 100 ml 840 ml Balance 120 ml 100 ml 840 ml Assessment & Plan Problem List: (1) Brief psychotic disorder ICD Code: F23 Assessment & Plan Estimated LOS: days patient continues confused somewhat disoriented helpless needy, compliant medications. For now continue treatment Justification for Cont. Inpt. At this time patient was severely decompensate if place to the lower level of care Discharge Planning To be determined Request HC Surrog/Guard Advoc?: Yes Rai Huggins MD Jan 08, 2017 14:45
[2017-01-08 18:43] VITALS: BP 129/74; PULSE 82; RESP 17; TEMP 98.7; O2SAT 97
[2017-01-09 06:01] VITALS: BP 105/57; PULSE 72; RESP 16; TEMP 96.2; O2SAT 96
[2017-01-09] MEDS: CITALOPRAM HYDROBROMIDE 40 MG TAB PO SCH (09:18)
[2017-01-09] MEDS: QUEtiapine FUMARATE 25 MG TAB PO SCH ×2 (09:18→21:32)
--- NOTE | 2017-01-09 10:10 | HHI.PR ---
Subjective Remarks Up OOB, wants to go home, very anxious. Objective Vital Signs Date Time Temp Pulse Resp B/P Pulse Ox O2 Delivery O2 Flow Rate FiO2 01/09/17 06:01 96.2 72 16 105/57 96 01/08/17 18:43 98.7 82 17 129/74 97 I/O 01/08/17 01/08/17 01/08/17 01/09/17 01/09/17 01/09/17 07:00 15:00 23:00 07:00 15:00 23:00 Intake Total 100 ml 1320 ml 0 ml Balance 100 ml 1320 ml 0 ml Intake Oral 100 ml 1320 ml 0 ml # Voids 1 2 1 Objective Remarks GENERAL: Well-nourished, well-developed patient. SKIN: Warm and dry. HEAD: Normocephalic. EYES: No scleral icterus. No injection or drainage. NECK: Supple, trachea midline. No JVD or lymphadenopathy. CARDIOVASCULAR: Regular rate and rhythm without murmurs, gallops, or rubs. RESPIRATORY: Breath sounds equal bilaterally. No accessory muscle use. GASTROINTESTINAL: Abdomen soft, non-tender, nondistended. EXTREMITIES: No cyanosis, or edema. NEUROLOGICAL: Awake, alert, and oriented to self, intermittently to place. Non- focal. PSYCHIATRIC: tearful, wants to go home with "Mo". Medications and IVs Current Medications Medications (Trade) Dose Ordered Sig/Minal Route Start Time Stop Time Status Last Admin (Tylenol) 650 mg Q4H PRN PO 12/31/16 16:45 (Milk Of Magnesia Liq) 30 ml DAILY PRN PO 12/31/16 16:45 (Mag-Al Plus Susp Liq) 30 ml Q6H PRN PO 12/31/16 16:45 (CeleXA) 40 mg DAILY PO 01/06/17 16:00 01/09/17 09:18 (Benadryl) 50 mg HS PRN PO 01/05/17 15:15 (Atarax) 50 mg Q6H PRN PO 01/05/17 15:15 (SEROquel) 50 mg BID PO 01/06/17 21:00 01/09/17 09:18 Assessment and Plan Problem List: (1) Altered mental status, unspecified Status: Acute Plan: Discharge held by lawnmower mechanic d/t safety concerns. Pascale ARIZMENDI, discussed care with niece, Ana Maria Saini, in [place] [phone]. She accepted being the Guardian Advocate for the patient and requests placement for pt. safety. (2) Major depressive disorder, recurrent episode, moderate with mixed features Status: Chronic Plan: Management per Dr. Huggins. On Celexa, seroquel, atarax. (3) Osteoarthritis Status: Chronic Plan: Can use tylenol PRN. No complaint of pain today. (4) Hypertension Status: Chronic Plan: Exacerbated by mood disorder, not on medications. When calm, BP remains in the low normal range. Manage triggers. (5) Dyslipidemia Status: Resolved Plan: Well controlled on diet. Not on statins. Assessment and Plan Medically stable for placement. D/W pt., RN, Dr. Guidry. Problem Qualifiers (1) Osteoarthritis: Qualified Code: M15.9 - Osteoarthritis of multiple joints, unspecified osteoarthritis type (2) Hypertension: Qualified Code: I10 - Essential hypertension Babita Bennett Jan 09, 2017 10:10
--- NOTE | 2017-01-09 14:44 | HHI.PYPN ---
Subjective Remarks Patient was seen and case discussed with nursing. Patient was noted to be tearful and labile yesterday. Today she is pleasant and cooperative with interview. He remains grossly confused with mood is stable. Per nursing patient has been calm and cooperative. Alert and oriented 1. Compliant with medications. Denies auditory visual hallucinations Objective Alert: Yes [place]: Person Mood: Other (labile) Affect: Other (bizarre, elevated affect) Memory Intact: Comment Hallucinations: Other (appears internally preoccupied) Delusions: Yes Delusion Type: Paranoid (vaguely) Suicidal: Ideation (denies) Homicidal: Ideation (denies) Insight/Judgement Poor Vitals/IOs Vital Signs Date Time Temp Pulse Resp B/P Pulse Ox O2 Delivery O2 Flow Rate FiO2 01/09/17 06:01 96.2 72 16 105/57 96 Intake and Output 01/08/17 01/08/17 01/09/17 08:00 16:00 00:00 Intake Total 100 ml 1320 ml Balance 100 ml 1320 ml Assessment & Plan Problem List: (1) Brief psychotic disorder ICD Code: F23 Assessment & Plan Continue current treatment plan Justification for Cont. Inpt. Patient will decompensate in a less restrictive setting Request HC Surrog/Guard Advoc?: Yes Stew Jones DO Jan 09, 2017 14:44
[2017-01-09 18:02] VITALS: BP 128/69; PULSE 81; RESP 16; TEMP 98.3; O2SAT 97
[2017-01-10 06:41] VITALS: BP 107/54; PULSE 73; RESP 17; TEMP 98; O2SAT 98
[2017-01-10] MEDS: CITALOPRAM HYDROBROMIDE 40 MG TAB PO SCH (09:22)
[2017-01-10] MEDS: QUEtiapine FUMARATE 25 MG TAB PO SCH ×2 (09:22→21:05)
[2017-01-10] MEDS: ACETAMINOPHEN 325 MG TAB PO PRN (11:46)
--- NOTE | 2017-01-10 11:50 | HHI.PYPN ---
Subjective Remarks Patient was seen and case discussed with nursing. Patient is alert and oriented 1. When asked about her date or where she is she is perseverative at looking at her wristband that information. Remains grossly confused. She is pleasant with myself and others. Compliant with her medications. Objective Alert: Yes [place]: Person Mood: Other (labile) Affect: Other (bizarre, elevated affect) Memory Intact: Comment Hallucinations: Other (appears internally preoccupied) Delusions: Yes Delusion Type: Paranoid (vaguely) Suicidal: Ideation (denies) Homicidal: Ideation (denies) Insight/Judgement Poor Vitals/IOs Vital Signs Date Time Temp Pulse Resp B/P Pulse Ox O2 Delivery O2 Flow Rate FiO2 01/10/17 06:41 98.0 73 17 107/54 98 Intake and Output 01/09/17 01/09/17 01/10/17 08:00 16:00 00:00 Intake Total 0 ml 720 ml 480 ml Balance 0 ml 720 ml 480 ml Assessment & Plan Problem List: (1) Brief psychotic disorder ICD Code: F23 Assessment & Plan Given likelihood of dementia consider starting Aricept and Namenda next week Justification for Cont. Inpt. Patient will decompensate in a less restrictive setting Request HC Surrog/Guard Advoc?: Yes Stew Jones DO Jan 10, 2017 11:50
--- NOTE | 2017-01-10 13:10 | HHI.PR ---
Subjective Remarks Resting, calm, pending placement. Objective Vital Signs Date Time Temp Pulse Resp B/P Pulse Ox O2 Delivery O2 Flow Rate FiO2 01/10/17 06:41 98.0 73 17 107/54 98 01/09/17 18:02 98.3 81 16 128/69 97 I/O 01/09/17 01/09/17 01/09/17 01/10/17 01/10/17 01/10/17 07:00 15:00 23:00 07:00 15:00 23:00 Intake Total 0 ml 720 ml 480 ml 0 ml 360 ml Balance 0 ml 720 ml 480 ml 0 ml 360 ml Intake Oral 0 ml 720 ml 480 ml 0 ml 360 ml # Voids 1 2 1 2 # Bowel Movements 0 0 Objective Remarks GENERAL: Well-nourished, well-developed patient. SKIN: Warm and dry. HEAD: Normocephalic. EYES: No scleral icterus. No injection or drainage. NECK: Supple, trachea midline. No JVD or lymphadenopathy. CARDIOVASCULAR: Regular rate and rhythm without murmurs, gallops, or rubs. RESPIRATORY: Breath sounds equal bilaterally. No accessory muscle use. GASTROINTESTINAL: Abdomen soft, non-tender, nondistended. EXTREMITIES: No cyanosis, or edema. NEUROLOGICAL: Awake, alert, and oriented to self, intermittently to place. Non- focal. PSYCHIATRIC: Calm, resting. Medications and IVs Current Medications Medications (Trade) Dose Ordered Sig/Minal Route Start Time Stop Time Status Last Admin (Tylenol) 650 mg Q4H PRN PO 12/31/16 16:45 01/10/17 11:46 (Milk Of Magnesia Liq) 30 ml DAILY PRN PO 12/31/16 16:45 (Mag-Al Plus Susp Liq) 30 ml Q6H PRN PO 12/31/16 16:45 (CeleXA) 40 mg DAILY PO 01/06/17 16:00 01/10/17 09:22 (Benadryl) 50 mg HS PRN PO 01/05/17 15:15 (Atarax) 50 mg Q6H PRN PO 01/05/17 15:15 (SEROquel) 50 mg BID PO 01/06/17 21:00 01/10/17 09:22 Assessment and Plan Problem List: (1) Altered mental status, unspecified Status: Acute Plan: Discharge held by placing judge d/t safety concerns. Pascale ARIZMENDI, discussed care with diana, Ana Maria Saini, in [place] [phone]. She accepted being the Guardian Advocate for the patient and requests placement for pt. safety. (2) Major depressive disorder, recurrent episode, moderate with mixed features Status: Chronic Plan: Management per Dr. Huggins. On Celexa, seroquel, atarax, benadryl. (3) Osteoarthritis Status: Chronic Plan: Can use tylenol PRN. No complaint of pain today. (4) Hypertension Status: Chronic Plan: Stable, not on medications. When calm, BP remains in the low normal range. Manage triggers. (5) Dyslipidemia Status: Resolved Plan: Well controlled on diet. Not on statins. Assessment and Plan Medically stable for placement. D/W pt., RN, Dr. Guidry. Problem Qualifiers (1) Osteoarthritis: Qualified Code: M15.9 - Osteoarthritis of multiple joints, unspecified osteoarthritis type (2) Hypertension: Qualified Code: I10 - Essential hypertension Babita Bennett Jan 10, 2017 13:10
[2017-01-10 18:00] VITALS: BP 124/59; PULSE 73; RESP 17; TEMP 98.4; O2SAT 96
[2017-01-11 06:42] VITALS: BP 103/67; PULSE 68; RESP 17; TEMP 97.9; O2SAT 97
[2017-01-11] MEDS: CITALOPRAM HYDROBROMIDE 40 MG TAB PO SCH (08:32)
[2017-01-11] MEDS: QUEtiapine FUMARATE 25 MG TAB PO SCH ×2 (08:34→20:45)
[2017-01-11] MEDS: hydrOXYzine HCL 50 MG TAB PO PRN (13:06)
--- NOTE | 2017-01-11 13:13 | HHI.PYPN ---
Subjective Remarks Patient was seen and case discussed with nursing. Patient is alert and oriented 0. When she cannot remember her name or where she was patient started crying and getting anxious. Asking to go home. Check was brought in to sit with her for a while and nursing was asked to provide anxiety medication. Objective Alert: Yes [place]: Person Mood: Other (labile) Affect: Other (bizarre, elevated affect) Memory Intact: Comment Hallucinations: Other (appears internally preoccupied) Delusions: Yes Delusion Type: Paranoid (vaguely) Suicidal: Ideation (denies) Homicidal: Ideation (denies) Insight/Judgement Poor Vitals/IOs Vital Signs Date Time Temp Pulse Resp B/P Pulse Ox O2 Delivery O2 Flow Rate FiO2 01/11/17 06:42 97.9 68 17 103/67 97 Intake and Output 01/10/17 01/10/17 01/11/17 08:00 16:00 00:00 Intake Total 360 ml 360 ml 1200 ml Balance 360 ml 360 ml 1200 ml Assessment & Plan Problem List: (1) Brief psychotic disorder ICD Code: F23 Assessment & Plan Continue current treatment plan Justification for Cont. Inpt. Patient will decompensate in a less restrictive setting Request HC Surrog/Guard Advoc?: Yes Stew Jones DO Jan 11, 2017 13:13
[2017-01-11 16:42] VITALS: BP 131/64; PULSE 69; RESP 17; TEMP 97; O2SAT 98
[2017-01-12 05:55] VITALS: BP 124/59; PULSE 72; RESP 18; TEMP 98.3; O2SAT 96
[2017-01-12] MEDS: CITALOPRAM HYDROBROMIDE 40 MG TAB PO SCH (09:29)
[2017-01-12] MEDS: QUEtiapine FUMARATE 25 MG TAB PO SCH ×2 (09:29→20:49)
--- NOTE | 2017-01-12 15:57 | HHI.PYPN ---
Subjective Remarks Patient seen with treatment team and medical student Maame, chart reviewed, patient seen on unit. Patient remains somewhat confused the labile tearful and volatile. Compliant medications. For now continue treatment Review of Systems Except as stated in HPI: all other systems reviewed are Neg Objective Alert: Yes [place]: Person Mood: Other (labile) Affect: Other (bizarre, elevated affect) Memory Intact: Comment Hallucinations: Other (appears internally preoccupied) Delusions: Yes Delusion Type: Paranoid (vaguely) Suicidal: Ideation (denies) Homicidal: Ideation (denies) Insight/Judgement Poor Vitals/IOs Vital Signs Date Time Temp Pulse Resp B/P Pulse Ox O2 Delivery O2 Flow Rate FiO2 01/12/17 05:55 98.3 72 18 124/59 96 Intake and Output 01/11/17 01/11/17 01/12/17 08:00 16:00 00:00 Intake Total 0 ml 2160 ml Balance 0 ml 2160 ml Assessment & Plan Problem List: (1) Brief psychotic disorder ICD Code: F23 Assessment & Plan Estimated LOS: days patient continue somewhat confused labile volatile and tearful, compliant medications Justification for Cont. Inpt. This time patient will decompensate of placed in the lower level of care Discharge Planning To be determined Request HC Surrog/Guard Advoc?: Yes Rai Huggins MD Jan 12, 2017 15:57
[2017-01-12 19:12] VITALS: BP 167/84; PULSE 79; RESP 18; TEMP 97.8; O2SAT 97
[2017-01-13 06:41] VITALS: BP 91/50; PULSE 63; RESP 16; TEMP 97; O2SAT 98
[2017-01-13] MEDS: QUEtiapine FUMARATE 25 MG TAB PO SCH ×2 (09:42→21:02)
[2017-01-13] MEDS: CITALOPRAM HYDROBROMIDE 40 MG TAB PO SCH (09:42)
--- NOTE | 2017-01-13 14:35 | HHI.PYPN ---
Subjective Remarks Patient seen in the day room with nurse Rose Mary medical student Leticia, chart reviewed. Patient just returned from pet therapy though she is happy smiling, did really enjoyed the visit with the various canines. Patient continues markedly confused disoriented her mood is stabilized, she denies suicidality homicidality voices or visions at this time. For now continue treatment Review of Systems Except as stated in HPI: all other systems reviewed are Neg Objective Alert: Yes [place]: Person Mood: Other (labile) Affect: Other (bizarre, elevated affect) Memory Intact: Comment Hallucinations: Other (appears internally preoccupied) Delusions: Yes Delusion Type: Paranoid (vaguely) Suicidal: Ideation (denies) Homicidal: Ideation (denies) Insight/Judgement Very poor Vitals/IOs Vital Signs Date Time Temp Pulse Resp B/P Pulse Ox O2 Delivery O2 Flow Rate FiO2 01/13/17 06:41 97.0 63 16 91/50 98 Intake and Output 01/12/17 01/12/17 01/13/17 08:00 16:00 00:00 Intake Total 1800 ml Output Total 2 ml Balance 1798 ml Assessment & Plan Problem List: (1) Brief psychotic disorder ICD Code: F23 Assessment & Plan Estimated LOS: days patient continues confused and demented, but no behavior problems, there is a sense of pathos with her at this time, it appears at time she is aware of the losses in her memory. Justification for Cont. Inpt. At this time patient decompensate if placed in the lower level of care Discharge Planning To be determined Request HC Surrog/Guard Advoc?: Yes Rai Huggins MD Jan 13, 2017 14:35
--- NOTE | 2017-01-13 16:52 | HHI.PR ---
Subjective Remarks Better today, still confused. Objective Vital Signs Date Time Temp Pulse Resp B/P Pulse Ox O2 Delivery O2 Flow Rate FiO2 01/13/17 06:41 97.0 63 16 91/50 98 01/12/17 19:12 97.8 79 18 167/84 97 I/O 01/12/17 01/12/17 01/12/17 01/13/17 01/13/17 01/13/17 07:00 15:00 23:00 07:00 15:00 23:00 Intake Total 1800 ml 840 ml Output Total 2 ml Balance 1798 ml 840 ml Intake Oral 1800 ml 840 ml Output Urine Total 2 ml # Voids 1 3 2 3 Imaging Last Impressions Head CT 12/31/16 0000 Signed Impressions: Service Date/Time: Saturday, December 31, 2016 11:39 - CONCLUSION: Negative for an acute process. Brannon Rebolledo MD FACR Objective Remarks GENERAL: Well-nourished, well-developed patient. SKIN: Warm and dry. HEAD: Normocephalic. EYES: No scleral icterus. No injection or drainage. NECK: Supple, trachea midline. No JVD or lymphadenopathy. CARDIOVASCULAR: Regular rate and rhythm without murmurs, gallops, or rubs. RESPIRATORY: Breath sounds equal bilaterally. No accessory muscle use. GASTROINTESTINAL: Abdomen soft, non-tender, nondistended. EXTREMITIES: No cyanosis, or edema. NEUROLOGICAL: Awake, alert, and oriented to self, intermittently to place. Non- focal. PSYCHIATRIC: Calm, resting. Medications and IVs Current Medications Medications (Trade) Dose Ordered Sig/Minal Route Start Time Stop Time Status Last Admin (Tylenol) 650 mg Q4H PRN PO 12/31/16 16:45 01/10/17 11:46 (Milk Of Magnesia Liq) 30 ml DAILY PRN PO 12/31/16 16:45 (Mag-Al Plus Susp Liq) 30 ml Q6H PRN PO 12/31/16 16:45 (CeleXA) 40 mg DAILY PO 01/06/17 16:00 01/13/17 09:42 (Benadryl) 50 mg HS PRN PO 01/05/17 15:15 (Atarax) 50 mg Q6H PRN PO 01/05/17 15:15 01/11/17 13:06 (SEROquel) 50 mg BID PO 01/06/17 21:00 01/13/17 09:42 Assessment and Plan Problem List: (1) Altered mental status, unspecified Status: Acute Plan: Pending stabilization for placement. Per previous office labs, may have a low vitamin D level. Will evaluate nutritional status and check UA. Pascale ARIZMENDI, discussed care with diana, Ana Maria Saini, in [place] [phone]. She accepted being the Guardian Advocate for the patient and requests placement for pt. safety. (2) Major depressive disorder, recurrent episode, moderate with mixed features Status: Chronic Plan: Management per Dr. Huggins. On Celexa, seroquel, atarax, benadryl. (3) Osteoarthritis Status: Chronic Plan: Can use tylenol PRN. No complaint of pain today. (4) Hypertension Status: Chronic Plan: Stable, not on medications. When calm, BP remains in the low normal range. Manage triggers. (5) Dyslipidemia Status: Resolved Plan: Well controlled on diet. Not on statins. (6) Constipation Status: Chronic Plan: On MOM. Will add miralax. Assessment and Plan Pending placement. D/W pt., RN, Dr. Guidry. Problem Qualifiers (1) Osteoarthritis: Qualified Code: M15.9 - Osteoarthritis of multiple joints, unspecified osteoarthritis type (2) Hypertension: Qualified Code: I10 - Essential hypertension Babita Bennett Jan 13, 2017 16:52
[2017-01-13 18:00] VITALS: BP 128/93; PULSE 76; RESP 15; TEMP 98; O2SAT 98
[2017-01-13] MEDS: POLYETHYLENE GLYCOL 17 GM PKG PO SCH (21:02)
[2017-01-13] MEDS: ACETAMINOPHEN 325 MG TAB PO PRN (21:25)
[2017-01-14 06:30] VITALS: BP 117/72; PULSE 62; RESP 16; TEMP 98.3; O2SAT 96
[2017-01-14 07:33] LABS: AUTOMATED NEUTROPHIL # 3.7 TH/MM3 (1.8-7.7); BASOPHIL % 0.5 % (0.0-2.0); EOSINOPHIL # 0.1 TH/MM3 (0-0.4); EOSINOPHIL % 1.9 % (0.0-4.0); HEMATOCRIT 41.7 % (35.0-46.0); HEMO FLAGS DIFF FINAL; LYMPH % 28.2 % (9.0-44.0); LYMPHOCYTE # 1.7 TH/MM3 (1.0-4.8); MEAN CELL VOLUME 84.8 FL (80.0-100.0); MEAN CORPUSCULAR HGB CONC 34.2 % (32.0-36.0); MONO % 7.5 % (0.0-8.0); NEUT % 61.9 % (16.0-70.0); PLATELET COUNT 171 TH/MM3 (150-450); RED BLOOD COUNT 4.92 MIL/MM3 (4.00-5.30); RED CELL DISTRIBUTION WIDTH 13.9 % (11.6-17.2)
[2017-01-14 08:24] LABS: BICARBONATE 30.8 MEQ/L (21.0-32.0); POTASSIUM 4.1 MEQ/L (3.5-5.1)
[2017-01-14] MEDS: QUEtiapine FUMARATE 25 MG TAB PO SCH ×2 (08:29→21:00)
[2017-01-14] MEDS: CITALOPRAM HYDROBROMIDE 40 MG TAB PO SCH (08:29)
--- NOTE | 2017-01-14 12:31 | HHI.PYPN ---
Subjective Remarks Patient seen in [place] with nurse Mindy, chart review, patient continues markedly confused fragile with fairly labile tearful episodes. The patient does denies suicidality denies voices. Compliant medications. Patient sleep appears to be interrupted and not very efficient, will add Remeron 15 mg at at bedtime Review of Systems Except as stated in HPI: all other systems reviewed are Neg Objective Alert: Yes [place]: Person Mood: Other (labile) Affect: Other (bizarre, elevated affect) Memory Intact: Comment Hallucinations: Other (appears internally preoccupied) Delusions: Yes Delusion Type: Paranoid (vaguely) Suicidal: Ideation (denies) Homicidal: Ideation (denies) Insight/Judgement Very poor Labs Test 01/14/17 07:06 White Blood Count 6.0 TH/MM3 Red Blood Count 4.92 MIL/MM3 Hemoglobin 14.3 GM/DL Hematocrit 41.7 % Mean Corpuscular Volume 84.8 FL Mean Corpuscular Hemoglobin 29.0 PG Mean Corpuscular Hemoglobin 34.2 % Concent Red Cell Distribution Width 13.9 % Platelet Count 171 TH/MM3 Mean Platelet Volume 7.5 FL Neutrophils (%) (Auto) 61.9 % Lymphocytes (%) (Auto) 28.2 % Monocytes (%) (Auto) 7.5 % Eosinophils (%) (Auto) 1.9 % Basophils (%) (Auto) 0.5 % Neutrophils # (Auto) 3.7 TH/MM3 Lymphocytes # (Auto) 1.7 TH/MM3 Monocytes # (Auto) 0.5 TH/MM3 Eosinophils # (Auto) 0.1 TH/MM3 Basophils # (Auto) 0.0 TH/MM3 CBC Comment DIFF FINAL Differential Comment Sodium Level 135 MEQ/L Potassium Level 4.1 MEQ/L Chloride Level 98 MEQ/L Carbon Dioxide Level 30.8 MEQ/L Anion Gap 6 MEQ/L Blood Urea Nitrogen 13 MG/DL Creatinine 0.73 MG/DL Estimat Glomerular Filtration 80 ML/MIN Rate Random Glucose 97 MG/DL Calcium Level 9.0 MG/DL Vitamin B12 Level 316 PG/ML 25-Hydroxy Vitamin D Total 24.8 ng/ML Vitals/IOs Vital Signs Date Time Temp Pulse Resp B/P Pulse Ox O2 Delivery O2 Flow Rate FiO2 01/14/17 06:30 98.3 62 16 117/72 96 Intake and Output 2/01/13/17 01/14/17 08:00 16:00 00:00 Intake Total 1320 ml Balance 1320 ml Assessment & Plan Problem List: (1) Brief psychotic disorder ICD Code: F23 Assessment & Plan Estimated LOS: days patient remains quite confused she is also tearful and somewhat depressed. We'll add Remeron 15 mg at at bedtime Justification for Cont. Inpt. At this time patient would decompensate if placed at a lower level of care Discharge Planning To be determined Request HC Surrog/Guard Advoc?: Yes Rai Huggins MD Jan 14, 2017 12:31
--- NOTE | 2017-01-14 13:16 | HHI.PR ---
Subjective Remarks Tearful today, C/O poor sleep, still confused. Objective Vital Signs Date Time Temp Pulse Resp B/P Pulse Ox O2 Delivery O2 Flow Rate FiO2 01/14/17 06:30 98.3 62 16 117/72 96 01/13/17 22:25 16 01/13/17 18:00 98.0 76 15 128/93 98 I/O 01/13/17 01/13/17 01/13/17 01/14/17 01/14/17 01/14/17 07:00 15:00 23:00 07:00 15:00 23:00 Intake Total 1320 ml Balance 1320 ml Intake Oral 1320 ml # Voids 2 3 2 Result Diagram: 01/14/1770501/14/17 0706 Objective Remarks GENERAL: Well-nourished, well-developed patient. SKIN: Warm and dry. HEAD: Normocephalic. EYES: No scleral icterus. No injection or drainage. NECK: Supple, trachea midline. No JVD or lymphadenopathy. CARDIOVASCULAR: Regular rate and rhythm without murmurs, gallops, or rubs. RESPIRATORY: Breath sounds equal bilaterally. No accessory muscle use. GASTROINTESTINAL: Abdomen soft, non-tender, nondistended. EXTREMITIES: No cyanosis, or edema. NEUROLOGICAL: Awake, alert, and oriented to self, intermittently to place. Non- focal. PSYCHIATRIC: Calm, resting. Medications and IVs Current Medications Medications (Trade) Dose Ordered Sig/Minal Route Start Time Stop Time Status Last Admin (Tylenol) 650 mg Q4H PRN PO 12/31/16 16:45 01/13/17 21:25 (Milk Of Magnesia Liq) 30 ml DAILY PRN PO 12/31/16 16:45 (Mag-Al Plus Susp Liq) 30 ml Q6H PRN PO 12/31/16 16:45 (CeleXA) 40 mg DAILY PO 01/06/17 16:00 01/14/17 08:29 (Benadryl) 50 mg HS PRN PO 01/05/17 15:15 (Atarax) 50 mg Q6H PRN PO 01/05/17 15:15 01/11/17 13:06 (SEROquel) 50 mg BID PO 01/06/17 21:00 01/14/17 08:29 (Miralax) 17 gm HS PO 01/13/17 21:00 01/13/17 21:02 (Remeron) 15 mg HS PO 01/14/17 21:00 Assessment and Plan Problem List: (1) Altered mental status, unspecified Status: Acute Plan: Pending stabilization for placement. Vitamin D slightly low. Will start replacement. Labs, UA reviewed. Mirtazapine started by Dr. Huggins for improved sleep. Kellen ARIZMENDI, discussed care with Ana Maria ortiz, in [place] [phone]. She accepted being the Guardian Advocate for the patient and requests placement for pt. safety. (2) Major depressive disorder, recurrent episode, moderate with mixed features Status: Chronic Plan: Management per Dr. Huggins. On Celexa, seroquel, atarax, mirtazapine, benadryl. (3) Osteoarthritis Status: Chronic Plan: Can use tylenol PRN. No complaint of pain today. (4) Hypertension Status: Chronic Plan: Stable, not on medications. When calm, BP remains in the low normal range. Manage triggers. (5) Dyslipidemia Status: Resolved Plan: Well controlled on diet. Not on statins. (6) Constipation Status: Chronic Plan: On MOM. Will add miralax. Assessment and Plan Pending stabilization for placement. D/W pt., RN, Dr. Guidry. Problem Qualifiers (1) Osteoarthritis: Qualified Code: M15.9 - Osteoarthritis of multiple joints, unspecified osteoarthritis type (2) Hypertension: Qualified Code: I10 - Essential hypertension Babita Bnenett Jan 14, 2017 13:16
[2017-01-14] MEDS: hydrOXYzine HCL 50 MG TAB PO PRN (21:00)
[2017-01-14] MEDS: MIRTAZAPINE 15 MG TAB PO SCH (21:00)
[2017-01-14] MEDS: POLYETHYLENE GLYCOL 17 GM PKG PO SCH (21:00)
[2017-01-14 22:54] VITALS: BP 130/74; PULSE 82; RESP 16; TEMP 98.2
[2017-01-15 06:00] VITALS: BP 107/54; PULSE 64; RESP 18; TEMP 96.5; O2SAT 94
[2017-01-15 07:56] LABS: BACTERIA, URINE OCC /hpf; BLOOD, URINE NEG (NEG); COMMENT (UR) CULT NOT INDICATED; CULTURE IF INDICATED CULT NOT INDICATED; GLUCOSE,URINE NEG (NEG); KETONE, URINE NEG (NEG); MUCUS URINE FEW /lpf (OCC); NITRITE,URINE NEG (NEG); SQUAMOUS EPITHELIAL CELL URINE <1 /hpf (0-5); URINE COLOR LIGHT-YELLOW (YELLW/STRAW)
[2017-01-15] MEDS: CHOLECALCIFEROL (VIT D3) 400 UNIT TAB PO SCH (09:38)
[2017-01-15] MEDS: CITALOPRAM HYDROBROMIDE 40 MG TAB PO SCH (09:38)
[2017-01-15] MEDS: QUEtiapine FUMARATE 25 MG TAB PO SCH ×2 (09:38→20:51)
[2017-01-15] MEDS: ACETAMINOPHEN 325 MG TAB PO PRN (09:45)
[2017-01-15] MEDS: hydrOXYzine HCL 50 MG TAB PO PRN (10:19)
--- NOTE | 2017-01-15 12:41 | PD.PN.STU ---
Subjective Remarks Intermittent laughing and crying Objective Vitals Vital Signs Date Time Temp Pulse Resp B/P Pulse Ox O2 Delivery O2 Flow Rate FiO2 01/15/17 06:00 96.5 64 18 107/54 94 01/14/17 22:54 98.2 82 16 130/74 I/O 01/14/17 01/14/17 01/14/17 01/15/17 01/15/17 01/15/17 06:59 14:59 22:59 06:59 14:59 22:59 Intake Total 1080 ml 480 ml 120 ml Balance 1080 ml 480 ml 120 ml Intake Oral 1080 ml 480 ml 120 ml # Voids 2 1 2 Result Diagram: 01/14/17 0706 01/14/17 0706 Objective Remarks Patient resting comfortably in bed, no acute distress. Does not answer appropriately when asked questions. Patients mood liable with episodes of laughing and crying. Will follow. A/P Assessment and Plan Impression: 61 year old female with PMHx of prior brief psychotic episodes, currently experiencing exacerbation of major depressive disorder with marked bereavement over the loss of her mother last month. Problem list: MDD acute exacerbation, hypertension Plan: Continue citalopram 40 mg and check on contact brother to gain further insight. LOS: TBD by medical team and legal entities based on patients progress Justification: At this time, patient would likely decompensate if placed in a lower level of care Above progress note reviewed noted and agreed with. Patient seen independently by me with independent note written Malina Arizmendi M3 Jan 15, 2017 12:40 Rai Huggins MD Jan 19, 2017 14:19
--- NOTE | 2017-01-15 14:09 | HHI.PYPN ---
Subjective Remarks Patient seen in her room with nurse Bren and medical student Leticia. Chart reviewed. Patient laying in bed calm responding appropriately for a period of time and then becoming more labile tearful needy. Compliant medications. Review of Systems Except as stated in HPI: all other systems reviewed are Neg Objective Alert: Yes [place]: Person Mood: Other (labile) Affect: Other (bizarre, elevated affect) Memory Intact: Comment Hallucinations: Other (appears internally preoccupied) Delusions: Yes Delusion Type: Paranoid (vaguely) Suicidal: Ideation (denies) Homicidal: Ideation (denies) Insight/Judgement Very poor Labs Test 01/15/17 06:30 Urine Color LIGHT-YELLOW Urine Turbidity HAZY Urine pH 7.0 Urine Specific [place] 1.010 Urine Protein NEG mg/dL Urine Glucose (UA) NEG mg/dL Urine Ketones NEG mg/dL Urine Occult Blood NEG Urine Nitrite NEG Urine Bilirubin NEG Urine Urobilinogen LESS THAN 2.0 MG/DL Urine Leukocyte Esterase NEG Urine RBC 1 /hpf Urine WBC 2 /hpf Urine Squamous Epithelial <1 /hpf Cells Urine Amorphous Sediment RARE Urine Bacteria OCC /hpf Urine Mucus FEW /lpf Microscopic Urinalysis Comment CULT NOT INDICATED Vitals/IOs Vital Signs Date Time Temp Pulse Resp B/P Pulse Ox O2 Delivery O2 Flow Rate FiO2 01/15/17 06:00 96.5 64 18 107/54 94 Intake and Output 01/14/17 01/14/17 01/15/17 08:00 16:00 00:00 Intake Total 1560 ml Balance 1560 ml Assessment & Plan Problem List: (1) Brief psychotic disorder ICD Code: F23 Assessment & Plan Estimated LOS: days patient remained psychotic labile tearful and quite needy Justification for Cont. Inpt. At this time patient would significantly decompensate if placed in a lower level of care Discharge Planning To be determined Request HC Surrog/Guard Advoc?: Yes Rai Huggins MD Jan 15, 2017 14:09
[2017-01-15 18:21] VITALS: BP 109/63; PULSE 69; RESP 18; TEMP 97.8; O2SAT 95
[2017-01-15] MEDS: MIRTAZAPINE 15 MG TAB PO SCH (20:51)
[2017-01-15] MEDS: POLYETHYLENE GLYCOL 17 GM PKG PO SCH (20:51)
[2017-01-16 03:30] VITALS: BP 143/72; PULSE 90; RESP 18; TEMP 98.6; O2SAT 95
[2017-01-16 06:43] VITALS: BP 143/72; PULSE 90; RESP 18; TEMP 98.6; O2SAT 95
[2017-01-16] MEDS: QUEtiapine FUMARATE 25 MG TAB PO SCH ×2 (09:59→21:03)
[2017-01-16] MEDS: CHOLECALCIFEROL (VIT D3) 400 UNIT TAB PO SCH (09:59)
[2017-01-16] MEDS: CITALOPRAM HYDROBROMIDE 40 MG TAB PO SCH (09:59)
--- NOTE | 2017-01-16 16:21 | HHI.PYPN ---
Subjective Remarks Patient seen in her room with medical student Maame, chart review, patient continues labile at times tearful somewhat clingy. Also continues diffusely confused. Compliant medications. Placement remains problematic Review of Systems Except as stated in HPI: all other systems reviewed are Neg Objective Alert: Yes [place]: Person Mood: Other (labile) Affect: Other (bizarre, elevated affect) Memory Intact: Comment Hallucinations: Other (appears internally preoccupied) Delusions: Yes Delusion Type: Paranoid (vaguely) Suicidal: Ideation (denies) Homicidal: Ideation (denies) Insight/Judgement Very poor Vitals/IOs Vital Signs Date Time Temp Pulse Resp B/P Pulse Ox O2 Delivery O2 Flow Rate FiO2 01/16/17 06:43 98.6 90 18 143/72 95 Intake and Output 01/15/17 01/15/17 01/16/17 08:00 16:00 00:00 Intake Total 120 ml 840 ml 480 ml Balance 120 ml 840 ml 480 ml Assessment & Plan Problem List: (1) Brief psychotic disorder ICD Code: F23 Assessment & Plan Estimated LOS: days patient remains somewhat depressed labile and intrusive, along with confused. Justification for Cont. Inpt. At this time patient would decompensate with placed in a lower level of care Discharge Planning To be determined Request HC Surrog/Guard Advoc?: Yes Rai Huggins MD Jan 16, 2017 16:21
[2017-01-16 20:23] VITALS: BP 120/66; PULSE 81; RESP 16; TEMP 99.3; O2SAT 95
[2017-01-16] MEDS: POLYETHYLENE GLYCOL 17 GM PKG PO SCH (21:00)
[2017-01-16] MEDS: MIRTAZAPINE 15 MG TAB PO SCH (21:03)
[2017-01-16] MEDS: ACETAMINOPHEN 325 MG TAB PO PRN (21:16)
[2017-01-17] MEDS: diphenhydrAMINE HCL 50 MG CAP PO PRN ×2 (00:19→21:03)
[2017-01-17] MEDS: hydrOXYzine HCL 50 MG TAB PO PRN (00:19)
[2017-01-17] MEDS: AZITHROMYCIN 250 MG TAB PO SCH ×2 (00:19→21:02)
[2017-01-17 06:31] VITALS: BP 129/67; PULSE 66; RESP 20; TEMP 96.8; O2SAT 100
--- NOTE | 2017-01-17 08:03 | HHI.PR ---
Subjective Remarks pt sore throat Objective Vital Signs Date Time Temp Pulse Resp B/P Pulse Ox O2 Delivery O2 Flow Rate FiO2 01/17/17 06:31 96.8 66 20 129/67 100 01/16/17 20:23 99.3 81 16 120/66 95 I/O 01/16/17 01/16/17 01/16/17 01/17/17 01/17/17 01/17/17 07:00 15:00 23:00 07:00 15:00 23:00 Intake Total 120 ml 240 ml 810 ml 360 ml Balance 120 ml 240 ml 810 ml 360 ml Intake Oral 120 ml 240 ml 810 ml 360 ml # Voids 1 3 Result Diagram: 01/14/17 0706 01/14/17 0706 Objective Remarks GENERAL: SKIN: Warm and dry. HEAD: Atraumatic. Normocephalic. EYES: Pupils equal and round. No scleral icterus. No injection or drainage. ENT: No nasal bleeding or discharge. pharynx red wit nasal drainage NECK: Trachea midline. No JVD. CARDIOVASCULAR: Regular rate and rhythm. RESPIRATORY: No accessory muscle use. Clear to auscultation. Breath sounds equal bilaterally. GASTROINTESTINAL: Abdomen soft, non-tender, nondistended. Hepatic and splenic margins not palpable. MUSCULOSKELETAL: Extremities without clubbing, cyanosis, or edema. No obvious deformities. NEUROLOGICAL: Awake and alert. No obvious cranial nerve deficits. Motor grossly within normal limits. Five out of 5 muscle strength in the arms and legs. Normal speech. PSYCHIATRIC: calm this am Medications and IVs Current Medications Medications (Trade) Dose Ordered Sig/Minal Route PRN Reason Start Time Stop Time Status Last Admin Dose Admin Acetaminophen (Tylenol) 650 mg Q4H PRN PO Pain 1-5 or Temp >101F 12/31/16 16:45 01/16/17 21:16 Magnesium Hydroxide (Milk Of Magnesia Liq) 30 ml DAILY PRN PO CONSTIPATION 12/31/16 16:45 Al Hydrox/Mg Hydrox/Simethicone (Mag-Al Plus Susp Liq) 30 ml Q6H PRN PO DYSPEPSIA 12/31/16 16:45 Citalopram Hydrobromide (CeleXA) 40 mg DAILY PO 01/06/17 16:00 01/16/17 09:59 Diphenhydramine HCl (Benadryl) 50 mg HS PRN PO INSOMNIA 01/05/17 15:15 01/17/17 00:19 Hydroxyzine HCl (Atarax) 50 mg Q6H PRN PO ANXIETY 01/05/17 15:15 01/17/17 00:19 Quetiapine Fumarate (SEROquel) 50 mg BID PO 01/06/17 21:00 01/16/17 21:03 Polyethylene Glycol (Miralax) 17 gm HS PO 01/13/17 21:00 01/16/17 21:00 Mirtazapine (Remeron) 15 mg HS PO 01/14/17 21:00 01/16/17 21:03 Cholecalciferol (Vitamin D3) 400 units DAILY PO 01/15/17 09:00 01/16/17 09:59 Azithromycin (Zithromax) 250 mg HS PO 01/16/17 23:00 01/22/17 21:01 01/17/17 00:19 Benzocaine/Menthol (Cepacol Extra Shahnaz (Sugar Free)) 1 lozenge UNSCH PRN BUCCAL SORE THROAT 01/16/17 23:15 Assessment and Plan Problem List: (1) pharangitis Status: Acute (2) Brief psychotic disorder Status: Acute (3) Osteoarthritis Status: Chronic Assessment and Plan pharangitis culture throat add zithromax and cephacol losengers Problem Qualifiers (1) Osteoarthritis: Qualified Code: M15.9 - Osteoarthritis of multiple joints, unspecified osteoarthritis type Jonel Guidry DO Jan 17, 2017 08:03
[2017-01-17] MEDS: CHOLECALCIFEROL (VIT D3) 400 UNIT TAB PO SCH (09:57)
[2017-01-17] MEDS: CITALOPRAM HYDROBROMIDE 40 MG TAB PO SCH (09:57)
[2017-01-17] MEDS: QUEtiapine FUMARATE 25 MG TAB PO SCH ×2 (09:57→21:02)
[2017-01-17] MEDS: BENZOCAINE-MENTHOL (SUGAR FREE) 15 MG-3.6 MG LOZENGE BUCCAL PRN (09:58)
[2017-01-17 18:00] VITALS: BP 157/79; PULSE 91; RESP 18; TEMP 99.9; O2SAT 96
--- NOTE | 2017-01-17 19:50 | HHI.PYPN ---
Subjective Remarks Pt seen and discussed with staff. She was labile last night and has been irritable today. Compliant with medications. NO side effects. Objective Alert: Yes [place]: Person Mood: Other (irritable) Affect: Restricted Memory Intact: Comment (fair) Hallucinations: Other (appears internally preoccupied) Delusions: Yes Delusion Type: Paranoid Suicidal: Ideation (denies) Homicidal: Ideation (denies) Insight/Judgement poor Labs Date/Time Procedure Status Source Growth 01/17/17 00:10 Throat Culture Received Throat Pending Vitals/IOs Vital Signs Date Time Temp Pulse Resp B/P Pulse Ox O2 Delivery O2 Flow Rate FiO2 01/17/17 06:31 96.8 66 20 129/67 100 Intake and Output 01/16/17 01/16/17 01/17/17 08:00 16:00 00:00 Intake Total 120 ml 240 ml 810 ml Balance 120 ml 240 ml 810 ml Assessment & Plan Problem List: (1) Brief psychotic disorder ICD Code: F23 Assessment & Plan Continue current tx plan. Estimated LOS: days Justification for Cont. Inpt. impairments in self care Request HC Surrog/Guard Advoc?: Yes Olivia Forbes MD Jan 17, 2017 19:50
[2017-01-17] MEDS: POLYETHYLENE GLYCOL 17 GM PKG PO SCH (21:02)
[2017-01-17] MEDS: MIRTAZAPINE 15 MG TAB PO SCH (21:02)
[2017-01-17] MEDS: ACETAMINOPHEN 325 MG TAB PO PRN (21:03)
[2017-01-18 04:52] VITALS: BP 133/7; PULSE 61; RESP 16; TEMP 98.1
[2017-01-18] MEDS: QUEtiapine FUMARATE 25 MG TAB PO SCH ×2 (10:28→21:00)
[2017-01-18] MEDS: CHOLECALCIFEROL (VIT D3) 400 UNIT TAB PO SCH (10:28)
[2017-01-18] MEDS: CITALOPRAM HYDROBROMIDE 40 MG TAB PO SCH (10:28)
[2017-01-18] MEDS: ACETAMINOPHEN 325 MG TAB PO PRN ×2 (10:30→21:22)
--- NOTE | 2017-01-18 13:05 | HHI.PYPN ---
Subjective Remarks Pt seen and discussed with staff. Pt was tearful and labile last night but has been in better mood today. Medication compliant without side effects. No SI/HI. Objective Alert: Yes [place]: Person Mood: Other (irritable) Affect: Restricted Memory Intact: Comment (fair) Hallucinations: Other (appears less internally preoccupied) Delusions: Yes Delusion Type: Paranoid (decreased) Suicidal: Ideation (denies) Homicidal: Ideation (denies) Insight/Judgement poor Labs Date/Time Procedure Status Source Growth 01/17/17 00:10 Throat Culture Received Throat Pending Vitals/IOs Vital Signs Date Time Temp Pulse Resp B/P Pulse Ox O2 Delivery O2 Flow Rate FiO2 01/18/17 04:52 98.1 61 16 133/7 01/17/17 18:00 96 Intake and Output 01/17/17 01/17/17 01/18/17 08:00 16:00 00:00 Intake Total 360 ml 720 ml 1920 ml Balance 360 ml 720 ml 1920 ml Assessment & Plan Problem List: (1) Brief psychotic disorder ICD Code: F23 Assessment & Plan Continue besst tx plan. Estimated LOS: days Justification for Cont. Inpt. deficits in selfcare due to reality construction impairments. Request HC Surrog/Guard Advoc?: Yes Olivia Forbes MD Jan 18, 2017 13:05
[2017-01-18 18:00] VITALS: BP 142/71; PULSE 89; RESP 16; TEMP 98.4; O2SAT 98
[2017-01-18] MEDS: MIRTAZAPINE 15 MG TAB PO SCH (21:00)
[2017-01-18] MEDS: POLYETHYLENE GLYCOL 17 GM PKG PO SCH (21:00)
[2017-01-18] MEDS: AZITHROMYCIN 250 MG TAB PO SCH (21:18)
[2017-01-18] MEDS: BENZOCAINE-MENTHOL (SUGAR FREE) 15 MG-3.6 MG LOZENGE BUCCAL PRN (21:19)
[2017-01-19 05:00] VITALS: BP 100/57; PULSE 67; RESP 17; O2SAT 97
[2017-01-19] MEDS: QUEtiapine FUMARATE 25 MG TAB PO SCH ×2 (09:59→20:34)
[2017-01-19] MEDS: CHOLECALCIFEROL (VIT D3) 400 UNIT TAB PO SCH (09:59)
[2017-01-19] MEDS: CITALOPRAM HYDROBROMIDE 40 MG TAB PO SCH (09:59)
--- NOTE | 2017-01-19 14:23 | HHI.PYPN ---
Subjective Remarks Patient discussed with treatment team, chart review, patient seen on unit. Patient compliant medications. Continues labile reactive to the Depakote contact that she receives. The more supportive and positive for positive she will be, though more focused on issues and possible placement issues the more labile and tearful she becomes. For now continue treatment Review of Systems Except as stated in HPI: all other systems reviewed are Neg Objective Alert: Yes [place]: Person Mood: Other (irritable) Affect: Restricted Memory Intact: Comment (fair) Hallucinations: Other (appears less internally preoccupied) Delusions: Yes Delusion Type: Paranoid (decreased) Suicidal: Ideation (denies) Homicidal: Ideation (denies) Insight/Judgement Very poor Labs Date/Time Procedure Status Source Growth 01/17/17 00:10 Throat Culture - Final Complete Throat Vitals/IOs Vital Signs Date Time Temp Pulse Resp B/P Pulse Ox O2 Delivery O2 Flow Rate FiO2 01/19/17 05:00 67 17 100/57 97 01/18/17 18:00 98.4 Intake and Output 01/18/17 01/18/17 01/19/17 08:00 16:00 00:00 Intake Total 0 ml 2160 ml Balance 0 ml 2160 ml Assessment & Plan Problem List: (1) Brief psychotic disorder ICD Code: F23 Assessment & Plan Estimated LOS: days patient continues somewhat depressed labile and paranoid at times. For now continue treatment, compliant medications Justification for Cont. Inpt. At this time patient will decompensate if place to the lower level of care Discharge Planning To be determined Request HC Surrog/Guard Advoc?: Yes Rai Huggins MD Jan 19, 2017 14:23
[2017-01-19 18:00] VITALS: BP 126/61; PULSE 90; RESP 17; TEMP 97.3; O2SAT 96
[2017-01-19] MEDS: AZITHROMYCIN 250 MG TAB PO SCH (20:33)
[2017-01-19] MEDS: POLYETHYLENE GLYCOL 17 GM PKG PO SCH (20:33)
[2017-01-19] MEDS: MIRTAZAPINE 15 MG TAB PO SCH (20:34)
[2017-01-20 06:00] VITALS: BP 120/59; PULSE 71; RESP 17; TEMP 97.8; O2SAT 96
[2017-01-20] MEDS: CHOLECALCIFEROL (VIT D3) 400 UNIT TAB PO SCH (09:00)
[2017-01-20] MEDS: CITALOPRAM HYDROBROMIDE 40 MG TAB PO SCH (09:51)
[2017-01-20] MEDS: QUEtiapine FUMARATE 25 MG TAB PO SCH ×2 (09:51→20:52)
--- NOTE | 2017-01-20 13:33 | HHI.PR ---
Subjective Remarks Pleasant, ambulating in halls, no agitation. Objective Vital Signs Date Time Temp Pulse Resp B/P Pulse Ox O2 Delivery O2 Flow Rate FiO2 01/20/17 06:00 97.8 71 17 120/59 96 01/19/17 18:00 97.3 90 17 126/61 96 I/O 01/19/17 01/19/17 01/19/17 01/20/17 01/20/17 01/20/17 07:00 15:00 23:00 07:00 15:00 23:00 Intake Total 1920 ml 630 ml Balance 1920 ml 630 ml Intake Oral 1920 ml 630 ml # Voids 8 1 Objective Remarks GENERAL: Well-nourished, well-developed patient. SKIN: Warm and dry. HEAD: Normocephalic. EYES: No scleral icterus. No injection or drainage. NECK: Supple, trachea midline. No JVD or lymphadenopathy. No pharyngeal erythema. CARDIOVASCULAR: Regular rate and rhythm without murmurs, gallops, or rubs. RESPIRATORY: Breath sounds equal bilaterally. No accessory muscle use. GASTROINTESTINAL: Abdomen soft, non-tender, nondistended. EXTREMITIES: No cyanosis, or edema. NEUROLOGICAL: Awake, alert, and oriented to self, place. Non-focal. PSYCHIATRIC: Calm, resting. Medications and IVs Current Medications Medications (Trade) Dose Ordered Sig/Minal Route Start Time Stop Time Status Last Admin (Tylenol) 650 mg Q4H PRN PO 12/31/16 16:45 01/18/17 21:22 (Milk Of Magnesia Liq) 30 ml DAILY PRN PO 12/31/16 16:45 (Mag-Al Plus Susp Liq) 30 ml Q6H PRN PO 12/31/16 16:45 01/19/17 13:40 (CeleXA) 40 mg DAILY PO 01/06/17 16:00 01/20/17 09:51 (Benadryl) 50 mg HS PRN PO 01/05/17 15:15 01/17/17 21:03 (Atarax) 50 mg Q6H PRN PO 01/05/17 15:15 01/17/17 00:19 (SEROquel) 50 mg BID PO 01/06/17 21:00 01/20/17 09:51 (Miralax) 17 gm HS PO 01/13/17 21:00 01/19/17 20:33 (Remeron) 15 mg HS PO 01/14/17 21:00 01/19/17 20:34 (Vitamin D3) 400 units DAILY PO 01/15/17 09:00 01/20/17 09:00 (Zithromax) 250 mg HS PO 01/16/17 23:00 01/22/17 21:01 01/19/17 20:33 (Cepacol Extra Shahnaz (Sugar Free)) 1 lozenge UNSCH PRN BUCCAL 01/16/17 23:15 01/18/17 21:19 Assessment and Plan Problem List: (1) Altered mental status, unspecified Status: Acute Plan: Pending stabilization for placement. Still somewhat labile and tearful under any stress. Labs in a.m. Kellen ARIZMENDI, discussed care with Ana Maria ortiz, in [place] [phone]. She accepted being the Guardian Advocate for the patient and requests placement for pt. safety. (2) Major depressive disorder, recurrent episode, moderate with mixed features Status: Chronic Plan: Management per Dr. Huggins. On Celexa, seroquel, atarax, mirtazapine, benadryl. (3) Osteoarthritis Status: Chronic Plan: Can use tylenol PRN. No complaint of pain today. (4) Hypertension Status: Chronic Plan: Stable, not on medications. When calm, BP remains in the low normal range. Manage triggers. (5) Dyslipidemia Status: Resolved Plan: Well controlled on diet. Not on statins. (6) Constipation Status: Chronic Plan: On MOM. Will add miralax. Assessment and Plan Pending stabilization for placement. D/W pt., RN, Dr. Guidry. Problem Qualifiers (1) Osteoarthritis: Qualified Code: M15.9 - Osteoarthritis of multiple joints, unspecified osteoarthritis type (2) Hypertension: Qualified Code: I10 - Essential hypertension Babita Bennett Jan 20, 2017 13:33
--- NOTE | 2017-01-20 15:49 | HHI.PYPN ---
Subjective Remarks Patient seen in day room with nurse Daniella and medical student Leticia chart reviewed. Patient calm pleasant with a smile for me today, though earlier today staff states she had episode of tearfulness and more lability. Compliant medications. The new treatment. Placement remains problematic Review of Systems Except as stated in HPI: all other systems reviewed are Neg Objective Alert: Yes [place]: Person Mood: Anxious, Calm, Depressed Affect: Labile, Restricted Memory Intact: Comment (fair) Hallucinations: Other (appears less internally preoccupied) Delusions: Yes Delusion Type: Paranoid (decreased) Suicidal: Ideation (denies) Homicidal: Ideation (denies) Insight/Judgement Very poor Labs Date/Time Procedure Status Source Growth 01/17/17 00:10 Throat Culture - Final Complete Throat Vitals/IOs Vital Signs Date Time Temp Pulse Resp B/P Pulse Ox O2 Delivery O2 Flow Rate FiO2 01/20/17 06:00 97.8 71 17 120/59 96 Intake and Output 01/19/17 01/19/17 01/20/17 08:00 16:00 00:00 Intake Total 1200 ml 630 ml Balance 1200 ml 630 ml Assessment & Plan Problem List: (1) Brief psychotic disorder ICD Code: F23 Assessment & Plan Estimated LOS: days patient continues labile tearful and confused, compliant medications. Justification for Cont. Inpt. At this time patient will decompensate if placed in a lower level of care Discharge Planning To be determined Request HC Surrog/Guard Advoc?: Yes Rai Huggins MD Jan 20, 2017 15:49
[2017-01-20 18:15] VITALS: BP 113/63; PULSE 82; RESP 18; TEMP 98.1
[2017-01-20] MEDS: POLYETHYLENE GLYCOL 17 GM PKG PO SCH (20:51)
[2017-01-20] MEDS: MIRTAZAPINE 15 MG TAB PO SCH (20:52)
[2017-01-20] MEDS: AZITHROMYCIN 250 MG TAB PO SCH (20:52)
[2017-01-21 06:03] VITALS: BP 118/56; PULSE 58; RESP 18; TEMP 97.9; O2SAT 96
[2017-01-21 06:17] VITALS: BP 118/56; PULSE 58; RESP 18; TEMP 97.9; O2SAT 96
[2017-01-21 07:48] LABS: AUTOMATED NEUTROPHIL # 1.7 TH/MM3 (1.8-7.7); BASOPHIL % 0.3 % (0.0-2.0); EOSINOPHIL # 0.2 TH/MM3 (0-0.4); EOSINOPHIL % 5.4 % (0.0-4.0); HEMATOCRIT 39.3 % (35.0-46.0); HEMO FLAGS DIFF FINAL; LYMPH % 42.8 % (9.0-44.0); LYMPHOCYTE # 1.7 TH/MM3 (1.0-4.8); MEAN CELL VOLUME 84.7 FL (80.0-100.0); MEAN CORPUSCULAR HEMOGLOBIN 29.1 PG (27.0-34.0); MEAN CORPUSCULAR HGB CONC 34.3 % (32.0-36.0); MONO % 10.6 % (0.0-8.0); NEUT % 40.9 % (16.0-70.0); PLATELET COUNT 121 TH/MM3 (150-450); RED BLOOD COUNT 4.64 MIL/MM3 (4.00-5.30); RED CELL DISTRIBUTION WIDTH 13.9 % (11.6-17.2); WHITE BLOOD COUNT 4.1 TH/MM3 (4.0-11.0)
[2017-01-21 08:15] LABS: BICARBONATE 30.9 MEQ/L (21.0-32.0); POTASSIUM 4.5 MEQ/L (3.5-5.1)
[2017-01-21] MEDS: CITALOPRAM HYDROBROMIDE 40 MG TAB PO SCH (09:36)
[2017-01-21] MEDS: CHOLECALCIFEROL (VIT D3) 400 UNIT TAB PO SCH (09:36)
[2017-01-21] MEDS: QUEtiapine FUMARATE 25 MG TAB PO SCH ×2 (09:37→20:30)
--- NOTE | 2017-01-21 10:00 | HHI.PYPN ---
Subjective Remarks Patient seen in [place] with nurse Yaneth, chart review, patient somewhat silly and superficial today, compliant medications. Continues confused and demented. For now continue treatment Review of Systems Except as stated in HPI: all other systems reviewed are Neg Objective Alert: Yes [place]: Person Mood: Anxious, Calm, Depressed Affect: Labile, Restricted Memory Intact: Comment (fair) Hallucinations: Other (appears less internally preoccupied) Delusions: Yes Delusion Type: Paranoid (decreased) Suicidal: Ideation (denies) Homicidal: Ideation (denies) Insight/Judgement Very poor Labs Test 01/21/17 06:39 White Blood Count 4.1 TH/MM3 Red Blood Count 4.64 MIL/MM3 Hemoglobin 13.5 GM/DL Hematocrit 39.3 % Mean Corpuscular Volume 84.7 FL Mean Corpuscular Hemoglobin 29.1 PG Mean Corpuscular Hemoglobin 34.3 % Concent Red Cell Distribution Width 13.9 % Platelet Count 121 TH/MM3 Mean Platelet Volume 7.8 FL Neutrophils (%) (Auto) 40.9 % Lymphocytes (%) (Auto) 42.8 % Monocytes (%) (Auto) 10.6 % Eosinophils (%) (Auto) 5.4 % Basophils (%) (Auto) 0.3 % Neutrophils # (Auto) 1.7 TH/MM3 Lymphocytes # (Auto) 1.7 TH/MM3 Monocytes # (Auto) 0.4 TH/MM3 Eosinophils # (Auto) 0.2 TH/MM3 Basophils # (Auto) 0.0 TH/MM3 CBC Comment DIFF FINAL Differential Comment Sodium Level 141 MEQ/L Potassium Level 4.5 MEQ/L Chloride Level 103 MEQ/L Carbon Dioxide Level 30.9 MEQ/L Anion Gap 7 MEQ/L Blood Urea Nitrogen 16 MG/DL Creatinine 0.72 MG/DL Estimat Glomerular Filtration 82 ML/MIN Rate Random Glucose 89 MG/DL Calcium Level 8.7 MG/DL Date/Time Procedure Status Source Growth 01/17/17 00:10 Throat Culture - Final Complete Throat Vitals/IOs Vital Signs Date Time Temp Pulse Resp B/P Pulse Ox O2 Delivery O2 Flow Rate FiO2 01/21/17 06:17 97.9 58 18 118/56 96 Intake and Output 01/20/17 01/20/17 01/21/17 08:00 16:00 00:00 Intake Total 1650 ml Balance 1650 ml Assessment & Plan Problem List: (1) Brief psychotic disorder ICD Code: F23 Assessment & Plan Estimated LOS: days patient remains labile superficial at times with incongruent affect. Compliant medications. Placement remains problematic. For now continue treatment Justification for Cont. Inpt. At this time patient will decompensate placed on the lower level of care Discharge Planning To be determined Request HC Surrog/Guard Advoc?: Yes Rai Huggins MD Jan 21, 2017 10:00
--- NOTE | 2017-01-21 15:45 | HHI.PR ---
Subjective Remarks Tearful, sad, wants to go home, confused, thoughts wandering. Objective Vital Signs Date Time Temp Pulse Resp B/P Pulse Ox O2 Delivery O2 Flow Rate FiO2 01/21/17 06:17 97.9 58 18 118/56 96 01/21/17 06:03 97.9 58 18 118/56 96 01/20/17 18:15 98.1 82 18 113/63 I/O 01/20/17 01/20/17 01/20/17 01/21/17 01/21/17 01/21/17 07:00 15:00 23:00 07:00 15:00 23:00 Intake Total 1650 ml 960 ml Balance 1650 ml 960 ml Intake Oral 1110 ml 960 ml Oral Supplement 540 ml # Voids 1 4 2 Result Diagram: 01/21/1763801/21/1739 Objective Remarks GENERAL: Well-nourished, well-developed patient. SKIN: Warm and dry. HEAD: Normocephalic. EYES: No scleral icterus. No injection or drainage. NECK: Supple, trachea midline. No JVD or lymphadenopathy. No pharyngeal erythema. CARDIOVASCULAR: Regular rate and rhythm without murmurs, gallops, or rubs. RESPIRATORY: Breath sounds equal bilaterally. No accessory muscle use. GASTROINTESTINAL: Abdomen soft, non-tender, nondistended. EXTREMITIES: No cyanosis, or edema. NEUROLOGICAL: Awake, alert, and oriented to self, place. Non-focal. PSYCHIATRIC: tearful, sad. Medications and IVs Current Medications Medications (Trade) Dose Ordered Sig/Minal Route Start Time Stop Time Status Last Admin (Tylenol) 650 mg Q4H PRN PO 12/31/16 16:45 01/18/17 21:22 (Milk Of Magnesia Liq) 30 ml DAILY PRN PO 12/31/16 16:45 (Mag-Al Plus Susp Liq) 30 ml Q6H PRN PO 12/31/16 16:45 01/19/17 13:40 (CeleXA) 40 mg DAILY PO 01/06/17 16:00 01/21/17 09:36 (Benadryl) 50 mg HS PRN PO 01/05/17 15:15 01/17/17 21:03 (Atarax) 50 mg Q6H PRN PO 01/05/17 15:15 01/17/17 00:19 (SEROquel) 50 mg BID PO 01/06/17 21:00 01/21/17 09:37 (Miralax) 17 gm HS PO 01/13/17 21:00 01/20/17 20:51 (Remeron) 15 mg HS PO 01/14/17 21:00 01/20/17 20:52 (Vitamin D3) 400 units DAILY PO 01/15/17 09:00 01/21/17 09:36 (Zithromax) 250 mg HS PO 01/16/17 23:00 01/22/17 21:01 01/20/17 20:52 (Cepacol Extra Shahnaz (Sugar Free)) 1 lozenge UNSCH PRN BUCCAL 01/16/17 23:15 01/18/17 21:19 Assessment and Plan Problem List: (1) Altered mental status, unspecified Status: Acute Plan: Pending stabilization for placement. Still somewhat labile and tearful under any stress. Labs stable. D/W Kellen ARIZMENDI niece, Lita Denny, in [place] accepted being the Guardian Advocate for the patient and requests placement for pt. safety. (2) Major depressive disorder, recurrent episode, moderate with mixed features Status: Chronic Plan: Management per Dr. Huggins. On Celexa, seroquel, atarax, mirtazapine, benadryl. (3) Osteoarthritis Status: Chronic Plan: Can use tylenol PRN. No complaint of pain today. (4) Hypertension Status: Chronic Plan: Stable, not on medications. (5) Dyslipidemia Status: Resolved Plan: Well controlled on diet. Not on statins. (6) Constipation Status: Chronic Plan: On MOM, miralax. Assessment and Plan Pending stabilization for placement. D/W pt., RN, Dr. Guidry. Problem Qualifiers (1) Osteoarthritis: Qualified Code: M15.9 - Osteoarthritis of multiple joints, unspecified osteoarthritis type (2) Hypertension: Qualified Code: I10 - Essential hypertension Babita Bennett Jan 21, 2017 15:45
[2017-01-21 19:50] VITALS: BP 113/65; PULSE 79; RESP 18; TEMP 97.6; O2SAT 95
[2017-01-21] MEDS: AZITHROMYCIN 250 MG TAB PO SCH (20:30)
[2017-01-21] MEDS: POLYETHYLENE GLYCOL 17 GM PKG PO SCH (20:30)
[2017-01-21] MEDS: MIRTAZAPINE 15 MG TAB PO SCH (20:30)
[2017-01-22 06:12] VITALS: BP 117/60; PULSE 66; RESP 18; TEMP 97.3; O2SAT 98
[2017-01-22] MEDS: CHOLECALCIFEROL (VIT D3) 400 UNIT TAB PO SCH (10:17)
[2017-01-22] MEDS: CITALOPRAM HYDROBROMIDE 40 MG TAB PO SCH (10:17)
[2017-01-22] MEDS: QUEtiapine FUMARATE 25 MG TAB PO SCH ×2 (10:17→20:51)
--- NOTE | 2017-01-22 13:40 | HHI.PR ---
Subjective Remarks Happier today. Objective Vital Signs Date Time Temp Pulse Resp B/P Pulse Ox O2 Delivery O2 Flow Rate FiO2 01/22/17 06:12 97.3 66 18 117/60 98 01/21/17 19:50 97.6 79 18 113/65 95 I/O 01/21/17 01/21/17 01/21/17 01/22/17 01/22/17 01/22/17 07:00 15:00 23:00 07:00 15:00 23:00 Intake Total 960 ml 960 ml 600 ml Balance 960 ml 960 ml 600 ml Intake Oral 960 ml 720 ml 600 ml Oral Supplement 240 ml # Voids 2 2 1 Result Diagram: 01/21/1763801/21/17638 Objective Remarks GENERAL: Well-nourished, well-developed patient. SKIN: Warm and dry. HEAD: Normocephalic. EYES: No scleral icterus. No injection or drainage. NECK: Supple, trachea midline. No JVD or lymphadenopathy. No pharyngeal erythema. CARDIOVASCULAR: Regular rate and rhythm without murmurs, gallops, or rubs. RESPIRATORY: Breath sounds equal bilaterally. No accessory muscle use. GASTROINTESTINAL: Abdomen soft, non-tender, nondistended. EXTREMITIES: No cyanosis, or edema. NEUROLOGICAL: Awake, alert, and oriented to self, place. Non-focal. PSYCHIATRIC: More conversational, smiles. Medications and IVs Current Medications Medications (Trade) Dose Ordered Sig/Minal Route Start Time Stop Time Status Last Admin (Tylenol) 650 mg Q4H PRN PO 12/31/16 16:45 01/18/17 21:22 (Milk Of Magnesia Liq) 30 ml DAILY PRN PO 12/31/16 16:45 (Mag-Al Plus Susp Liq) 30 ml Q6H PRN PO 12/31/16 16:45 01/19/17 13:40 (CeleXA) 40 mg DAILY PO 01/06/17 16:00 01/22/17 10:17 (Benadryl) 50 mg HS PRN PO 01/05/17 15:15 01/17/17 21:03 (Atarax) 50 mg Q6H PRN PO 01/05/17 15:15 01/17/17 00:19 (SEROquel) 50 mg BID PO 01/06/17 21:00 01/22/17 10:17 (Miralax) 17 gm HS PO 01/13/17 21:00 01/21/17 20:30 (Remeron) 15 mg HS PO 01/14/17 21:00 01/21/17 20:30 (Vitamin D3) 400 units DAILY PO 01/15/17 09:00 01/22/17 10:17 (Zithromax) 250 mg HS PO 01/16/17 23:00 01/22/17 21:01 01/21/17 20:30 (Cepacol Extra Shahnaz (Sugar Free)) 1 lozenge UNSCH PRN BUCCAL 01/16/17 23:15 01/18/17 21:19 Assessment and Plan Problem List: (1) Altered mental status, unspecified Status: Acute Plan: Pending stabilization for placement. Doing better on current meds. D/W Kellen ARIZMENDI niece, Lita Denny, in [place] [phone] accepted being the Guardian Advocate for the patient and requests placement for pt. safety. (2) Major depressive disorder, recurrent episode, moderate with mixed features Status: Chronic Plan: Management per Dr. Huggins. On Celexa, seroquel, atarax, mirtazapine, benadryl. (3) Osteoarthritis Status: Chronic Plan: Can use tylenol PRN. No complaint of pain today. (4) Hypertension Status: Chronic Plan: Stable, not on medications. (5) Dyslipidemia Status: Resolved Plan: Well controlled on diet. Not on statins. (6) Constipation Status: Chronic Plan: On MOM, miralax PRN. Assessment and Plan Pending stabilization for placement. D/W pt., RN, Dr. Guidry. Problem Qualifiers (1) Osteoarthritis: Qualified Code: M15.9 - Osteoarthritis of multiple joints, unspecified osteoarthritis type (2) Hypertension: Qualified Code: I10 - Essential hypertension Babita Bennett Jan 22, 2017 13:40
[2017-01-22] MEDS: hydrOXYzine HCL 50 MG TAB PO PRN (14:08)
--- NOTE | 2017-01-22 14:11 | HHI.PYPN ---
Subjective Remarks Patient seen in her room with nurse Rose Mary medical student Maame, patient somewhat distant with a somewhat wounded petulant look on her face. Especially after we questioned her memory related to my role and medical students role here it appears the slender having episodes of crying after he left the room. Patient remains confused, emotionally labile, compliant medications Review of Systems ROS Limitations: Unresponsive Objective Alert: Yes [place]: Person Mood: Anxious, Calm, Depressed Affect: Labile, Restricted Memory Intact: Comment (fair) Hallucinations: Other (appears less internally preoccupied) Delusions: Yes Delusion Type: Paranoid (decreased) Suicidal: Ideation (denies) Homicidal: Ideation (denies) Insight/Judgement Very poor Vitals/IOs Vital Signs Date Time Temp Pulse Resp B/P Pulse Ox O2 Delivery O2 Flow Rate FiO2 01/22/17 06:12 97.3 66 18 117/60 98 Intake and Output 01/21/17 01/21/17 01/22/17 08:00 16:00 00:00 Intake Total 480 ml 480 ml 960 ml Balance 480 ml 480 ml 960 ml Assessment & Plan Problem List: (1) Brief psychotic disorder ICD Code: F23 Assessment & Plan Estimated LOS: days patient remains confused labile tearful, compliant medications Justification for Cont. Inpt. At this time patient will decompensate to place to the lower level of care Discharge Planning To be determined Request HC Surrog/Guard Advoc?: Yes Rai Huggins MD Jan 22, 2017 14:11
[2017-01-22 18:41] VITALS: BP 109/61; PULSE 78; RESP 18; TEMP 97.4; O2SAT 96
[2017-01-22] MEDS: MIRTAZAPINE 15 MG TAB PO SCH (20:51)
[2017-01-22] MEDS: AZITHROMYCIN 250 MG TAB PO SCH (20:51)
[2017-01-22] MEDS: POLYETHYLENE GLYCOL 17 GM PKG PO SCH (20:51)
[2017-01-22] MEDS: BENZOCAINE-MENTHOL (SUGAR FREE) 15 MG-3.6 MG LOZENGE BUCCAL PRN (21:06)
[2017-01-23 06:39] VITALS: BP 112/58; PULSE 61; RESP 16; TEMP 97.7; O2SAT 98
[2017-01-23] MEDS: CHOLECALCIFEROL (VIT D3) 400 UNIT TAB PO SCH (09:11)
[2017-01-23] MEDS: CITALOPRAM HYDROBROMIDE 40 MG TAB PO SCH (09:11)
[2017-01-23] MEDS: QUEtiapine FUMARATE 25 MG TAB PO SCH ×2 (09:12→20:47)
--- NOTE | 2017-01-23 12:53 | PD.PN.STU ---
Subjective Remarks Lying comfortably in bed this afternoon. Denies suicidal/homicidal thoughts. States she is feeling well. Objective Vitals Vital Signs Date Time Temp Pulse Resp B/P Pulse Ox O2 Delivery O2 Flow Rate FiO2 01/23/17 06:39 97.7 61 16 112/58 98 01/22/17 18:41 97.4 78 18 109/61 96 I/O 01/22/17 01/22/17 01/22/17 01/23/17 01/23/17 01/23/17 07:00 15:00 23:00 07:00 15:00 23:00 Intake Total 600 ml 1500 ml 0 ml 480 ml Balance 600 ml 1500 ml 0 ml 480 ml Intake Oral 600 ml 780 ml 0 ml 480 ml Oral Supplement 720 ml # Voids 1 2 1 Result Diagram: 01/21/1763801/21/1739 Objective Remarks Patient seen napping in room with nurse and Dr. Huggins. Chart reviewed. Patients mood still very liable, episodes of crying and tearful this morning while brother visiting. Appears happy and cheerful this afternoon on exam. Affect: Liable insight/Judgement: poor Behavior: Calm and cooperative on unit. A/P Assessment and Plan Impression: 61 year old female with PMHx of prior brief psychotic episodes, currently experiencing exacerbation of major depressive disorder with marked bereavement over the loss of her mother last month. Problem list: MDD acute exacerbation, hypertension Plan: Continue citalopram 40 mg and check on contact brother to gain further insight. LOS: TBD by medical team and legal entities based on patients progress Justification: At this time, patient would likely decompensate if placed in a lower level of care Discharge Planning To be determined. Malina Arizmendi M3 Jan 23, 2017 12:53
--- NOTE | 2017-01-23 12:55 | HHI.PYPN ---
Subjective Remarks Patient seen today in her room with nurse Rose Mary medical student Maame, chart reviewed. At this time Patient somewhat calmer, denying voices denying suicidality. She still remains diffusely confused Review of Systems Except as stated in HPI: all other systems reviewed are Neg Objective Alert: Yes [place]: Person Mood: Anxious, Calm, Depressed Affect: Labile, Restricted Memory Intact: Comment (fair) Hallucinations: Other (appears less internally preoccupied) Delusions: Yes Delusion Type: Paranoid (decreased) Suicidal: Ideation (denies) Homicidal: Ideation (denies) Insight/Judgement Poor Vitals/IOs Vital Signs Date Time Temp Pulse Resp B/P Pulse Ox O2 Delivery O2 Flow Rate FiO2 01/23/17 06:39 97.7 61 16 112/58 98 Intake and Output 01/22/17 01/22/17 01/23/17 08:00 16:00 00:00 Intake Total 600 ml 1500 ml Balance 600 ml 1500 ml Assessment & Plan Problem List: (1) Brief psychotic disorder ICD Code: F23 Assessment & Plan Estimated LOS: days patient continue somewhat confused vigilant, perforation staff labile. Compliant medications. Justification for Cont. Inpt. At this time patient was significantly decompensate if placed in a lower level of care Discharge Planning To be determined Request HC Surrog/Guard Advoc?: Yes Rai Huggins MD Jan 23, 2017 12:55
[2017-01-23 18:12] VITALS: BP 102/53; PULSE 59; RESP 16; TEMP 97.2; O2SAT 97
[2017-01-23] MEDS: POLYETHYLENE GLYCOL 17 GM PKG PO SCH (20:47)
[2017-01-23] MEDS: MIRTAZAPINE 15 MG TAB PO SCH (20:47)
[2017-01-23] MEDS: BENZOCAINE-MENTHOL (SUGAR FREE) 15 MG-3.6 MG LOZENGE BUCCAL PRN (21:05)
[2017-01-24 06:00] VITALS: BP 110/63; PULSE 65; RESP 16; TEMP 98; O2SAT 96
[2017-01-24] MEDS: QUEtiapine FUMARATE 25 MG TAB PO SCH ×2 (09:19→20:36)
[2017-01-24] MEDS: CHOLECALCIFEROL (VIT D3) 400 UNIT TAB PO SCH (09:19)
[2017-01-24] MEDS: CITALOPRAM HYDROBROMIDE 40 MG TAB PO SCH (09:19)
--- NOTE | 2017-01-24 13:20 | HHI.PYPN ---
Subjective Remarks Patient was seen and case discussed with nursing. She is alert and oriented 1. When asked about the names of her family members or her surroundings she gets confused and irritable. Compliant with her medications. Behaving well on the unit. Denies suicidal ideation intent or plan. Denies psychosis. Objective Alert: Yes [place]: Person Mood: Anxious, Depressed Affect: Restricted Memory Intact: Comment (fair) Hallucinations: Other (appears less internally preoccupied) Delusions: Yes Delusion Type: Paranoid (denies) Suicidal: Ideation (denies) Homicidal: Ideation (denies) Insight/Judgement Poor Vitals/IOs Vital Signs Date Time Temp Pulse Resp B/P Pulse Ox O2 Delivery O2 Flow Rate FiO2 01/24/17 06:00 98.0 65 16 110/63 96 Intake and Output 01/23/17 01/23/17 01/24/17 08:00 16:00 00:00 Intake Total 240 ml 480 ml 960 ml Balance 240 ml 480 ml 960 ml Assessment & Plan Problem List: (1) Brief psychotic disorder ICD Code: F23 Assessment & Plan Continue current treatment plan Justification for Cont. Inpt. Patient will decompensate in a less restrictive setting Request HC Surrog/Guard Advoc?: Yes Stew Jones DO Jan 24, 2017 13:20
[2017-01-24 18:32] VITALS: BP 125/60; PULSE 71; RESP 18; TEMP 98.3; O2SAT 96
[2017-01-24] MEDS: POLYETHYLENE GLYCOL 17 GM PKG PO SCH (20:36)
[2017-01-24] MEDS: MIRTAZAPINE 15 MG TAB PO SCH (20:36)
[2017-01-25 06:05] VITALS: BP 105/58; PULSE 61; RESP 16; TEMP 96.9; O2SAT 98
[2017-01-25] MEDS: QUEtiapine FUMARATE 25 MG TAB PO SCH ×2 (08:07→20:55)
[2017-01-25] MEDS: CITALOPRAM HYDROBROMIDE 40 MG TAB PO SCH (08:07)
[2017-01-25] MEDS: CHOLECALCIFEROL (VIT D3) 400 UNIT TAB PO SCH (08:07)
--- NOTE | 2017-01-25 13:12 | HHI.PYPN ---
Subjective Remarks Patient was seen and case discussed with nursing. Today patient refuses the interview and walks in all direction. Per nursing she was tearful this morning. Remains grossly confused and disorganized. Objective Alert: Yes [place]: Person Mood: Anxious, Depressed Affect: Labile Memory Intact: Comment (poor) Hallucinations: Other (appears less internally preoccupied) Delusions: Yes Delusion Type: Paranoid (denies) Suicidal: Ideation (would not answer) Homicidal: Ideation (would not answer) Insight/Judgement Poor Vitals/IOs Vital Signs Date Time Temp Pulse Resp B/P Pulse Ox O2 Delivery O2 Flow Rate FiO2 01/25/17 06:05 96.9 61 16 105/58 98 Intake and Output 01/24/17 01/24/17 01/25/17 08:00 16:00 00:00 Intake Total 600 ml 1630 ml Balance 600 ml 1630 ml Assessment & Plan Problem List: (1) Brief psychotic disorder ICD Code: F23 Assessment & Plan Continue current treatment plan Justification for Cont. Inpt. Patient will decompensate in a less restrictive setting Request HC Surrog/Guard Advoc?: Yes Stew Jones DO Jan 25, 2017 13:12
[2017-01-25 20:29] VITALS: BP 118/75; PULSE 81; RESP 20; TEMP 98.7; O2SAT 96
[2017-01-25] MEDS: MIRTAZAPINE 15 MG TAB PO SCH (20:55)
[2017-01-25] MEDS: POLYETHYLENE GLYCOL 17 GM PKG PO SCH (20:56)
[2017-01-26 05:10] VITALS: BP 108/62; PULSE 58; RESP 16; O2SAT 93
[2017-01-26] MEDS: CITALOPRAM HYDROBROMIDE 40 MG TAB PO SCH (10:01)
[2017-01-26] MEDS: QUEtiapine FUMARATE 25 MG TAB PO SCH ×2 (10:01→20:50)
[2017-01-26] MEDS: CHOLECALCIFEROL (VIT D3) 400 UNIT TAB PO SCH (10:01)
--- NOTE | 2017-01-26 16:32 | HHI.PYPN ---
Subjective Remarks Patient discussed with treatment team, chart review, he should seen on unit. Patient overall calm pleasant with me though staff states her some episodes of tearful lability when it appears she is somewhat emotionally wounded. Otherwise no significant behavioral problems Review of Systems Except as stated in HPI: all other systems reviewed are Neg Objective Alert: Yes [place]: Person Mood: Anxious, Depressed Affect: Labile Memory Intact: Comment Hallucinations: Other (appears less internally preoccupied) Delusions: Yes Delusion Type: Paranoid (denies) Suicidal: Ideation Homicidal: Ideation Insight/Judgement Poor Vitals/IOs Vital Signs Date Time Temp Pulse Resp B/P Pulse Ox O2 Delivery O2 Flow Rate FiO2 01/26/17 05:10 58 16 108/62 93 01/25/17 20:29 98.7 Intake and Output 01/25/17 01/25/17 01/26/17 08:00 16:00 00:00 Intake Total 240 ml 1440 ml Balance 240 ml 1440 ml Assessment & Plan Problem List: (1) Brief psychotic disorder ICD Code: F23 Assessment & Plan Estimated LOS: days patient continues labile at times somewhat irritable overall cooperative with me. Compliant medications Justification for Cont. Inpt. This time patient will decompensate placed in a lower level of care Discharge Planning To be determined Request HC Surrog/Guard Advoc?: Yes Rai Huggins MD Jan 26, 2017 16:31
[2017-01-26] MEDS: BENZOCAINE-MENTHOL (SUGAR FREE) 15 MG-3.6 MG LOZENGE BUCCAL PRN ×2 (18:12→21:12)
[2017-01-26 18:42] VITALS: BP 126/61; PULSE 77; RESP 16; TEMP 97.6; O2SAT 96
[2017-01-26] MEDS: POLYETHYLENE GLYCOL 17 GM PKG PO SCH (20:49)
[2017-01-26] MEDS: MIRTAZAPINE 15 MG TAB PO SCH (20:50)
[2017-01-27 06:13] VITALS: BP 107/57; PULSE 56; RESP 18; TEMP 98; O2SAT 99
--- NOTE | 2017-01-27 09:50 | HHI.PYPN ---
Subjective Remarks Patient seen in [place] with nurse Rose Mary and medical student Maame, chart review, this morning patient is calm and pleasant with me making good eye contact though is somewhat childish manner. She remains diffusely confused though when not challenged about it she remains in a good mood with good affect. Patient compliant with her medications. Placement continues remain a problem Review of Systems Except as stated in HPI: all other systems reviewed are Neg Objective Alert: Yes [place]: Person Mood: Anxious, Calm, Depressed Affect: Labile Memory Intact: Comment Hallucinations: Other (appears less internally preoccupied) Delusions: Yes Delusion Type: Paranoid (denies) Suicidal: Ideation Homicidal: Ideation Insight/Judgement Very poor Vitals/IOs Vital Signs Date Time Temp Pulse Resp B/P Pulse Ox O2 Delivery O2 Flow Rate FiO2 01/27/17 06:13 98.0 56 18 107/57 99 Intake and Output 01/26/17 01/26/17 01/27/17 08:00 16:00 00:00 Intake Total 1680 ml 1080 ml Balance 1680 ml 1080 ml Assessment & Plan Problem List: (1) Brief psychotic disorder ICD Code: F23 Assessment & Plan Estimated LOS: days patient remains superficial silly and childlike, still labile. Compliant medications. Continues also somewhat confused. Placement remains an issue Justification for Cont. Inpt. At this time patient will decompensate if placed in a lower level of care Discharge Planning To be determined Request HC Surrog/Guard Advoc?: Yes Rai Huggins MD Jan 27, 2017 09:50
[2017-01-27] MEDS: QUEtiapine FUMARATE 25 MG TAB PO SCH ×2 (09:58→21:00)
[2017-01-27] MEDS: CHOLECALCIFEROL (VIT D3) 400 UNIT TAB PO SCH (09:58)
[2017-01-27] MEDS: CITALOPRAM HYDROBROMIDE 40 MG TAB PO SCH (09:58)
[2017-01-27 18:00] VITALS: BP 102/68; PULSE 75; RESP 18; TEMP 98; O2SAT 95
[2017-01-27] MEDS: MIRTAZAPINE 15 MG TAB PO SCH (21:00)
[2017-01-27] MEDS: ACETAMINOPHEN 325 MG TAB PO PRN (21:00)
[2017-01-27] MEDS: POLYETHYLENE GLYCOL 17 GM PKG PO SCH (21:00)
[2017-01-27] MEDS: diphenhydrAMINE HCL 50 MG CAP PO PRN (22:08)
[2017-01-28 05:44] VITALS: BP 120/64; PULSE 65; RESP 19; TEMP 96.6; O2SAT 99
--- NOTE | 2017-01-28 07:23 | HHI.PR ---
Subjective Remarks Patient seen at bedside resting comfortably. No complaints Objective Vital Signs Date Time Temp Pulse Resp B/P Pulse Ox O2 Delivery O2 Flow Rate FiO2 01/28/17 05:44 96.6 65 19 120/64 99 01/27/17 18:00 98.0 75 18 102/68 95 I/O 01/27/17 01/27/17 01/27/17 01/28/17 01/28/17 01/28/17 07:00 15:00 23:00 07:00 15:00 23:00 Intake Total 1920 ml 960 ml Output Total 1 ml Balance 1920 ml 959 ml Intake Oral 1920 ml 960 ml Output Urine Total 1 ml # Voids 2 3 2 # Bowel Movements 0 Other Results GENERAL: SKIN: Warm and dry. HEAD: Normocephalic. EYES: No scleral icterus. No injection or drainage. NECK: Supple, trachea midline. No JVD or lymphadenopathy. CARDIOVASCULAR: Regular rate and rhythm without murmurs, gallops, or rubs. RESPIRATORY: Breath sounds equal bilaterally. No accessory muscle use. GASTROINTESTINAL: Abdomen soft, non-tender, nondistended. MUSCULOSKELETAL: No cyanosis, or edema. BACK: Nontender without obvious deformity. No CVA tenderness. Medications and IVs Current Medications Medications (Trade) Dose Ordered Sig/Minal Route Start Time Stop Time Status Last Admin (Tylenol) 650 mg Q4H PRN PO 12/31/16 16:45 01/27/17 21:00 (Milk Of Magnesia Liq) 30 ml DAILY PRN PO 12/31/16 16:45 (Mag-Al Plus Susp Liq) 30 ml Q6H PRN PO 12/31/16 16:45 01/19/17 13:40 (CeleXA) 40 mg DAILY PO 01/06/17 16:00 01/27/17 09:58 (Benadryl) 50 mg HS PRN PO 01/05/17 15:15 01/27/17 22:08 (Atarax) 50 mg Q6H PRN PO 01/05/17 15:15 01/22/17 14:08 (SEROquel) 50 mg BID PO 01/06/17 21:00 01/27/17 21:00 (Miralax) 17 gm HS PO 01/13/17 21:00 01/27/17 21:00 (Remeron) 15 mg HS PO 01/14/17 21:00 01/27/17 21:00 (Vitamin D3) 400 units DAILY PO 01/15/17 09:00 01/27/17 09:58 (Cepacol Extra Shahnaz (Sugar Free)) 1 lozenge UNSCH PRN BUCCAL 01/16/17 23:15 01/26/17 21:12 Assessment and Plan Problem List: (1) Altered mental status, unspecified Status: Acute Plan: Patient is alert and cooperative with current treatment. Per Kellen ARIZMENDI , discussed care with with Ana Maria ortiz, in [place] [phone]. She accepted being the Guardian Advocate for the patient and requests placement for pt. safety. Placement is pending (2) Major depressive disorder, recurrent episode, moderate with mixed features Status: Chronic Plan: Well controlled. Psych managing (3) Hypertension Status: Chronic Plan: Blood pressure well controlled. Assessment and Plan Assessment and plan discussed with Dr. Guidry. Problem Qualifiers (1) Hypertension: Qualified Code: I10 - Essential hypertension Diana Walden Jan 28, 2017 07:23
[2017-01-28] MEDS: CHOLECALCIFEROL (VIT D3) 400 UNIT TAB PO SCH (09:23)
[2017-01-28] MEDS: CITALOPRAM HYDROBROMIDE 40 MG TAB PO SCH (09:23)
[2017-01-28] MEDS: QUEtiapine FUMARATE 25 MG TAB PO SCH ×2 (09:25→21:04)
--- NOTE | 2017-01-28 13:22 | HHI.PYPN ---
Subjective Remarks Patient seen in day room with nurse Debora and family practice resident Raman. Patient remains somewhat confused and labile with being easily reactive towards tears. Will increase Remeron to 30 mg at bedtime Review of Systems Except as stated in HPI: all other systems reviewed are Neg Objective Alert: Yes [place]: Person Mood: Anxious, Calm, Depressed Affect: Labile Memory Intact: Comment Hallucinations: Other (appears less internally preoccupied) Delusions: Yes Delusion Type: Paranoid (denies) Suicidal: Ideation Homicidal: Ideation Insight/Judgement Very poor Vitals/IOs Vital Signs Date Time Temp Pulse Resp B/P Pulse Ox O2 Delivery O2 Flow Rate FiO2 01/28/17 05:44 96.6 65 19 120/64 99 Intake and Output 01/27/17 01/27/17 01/28/17 08:00 16:00 00:00 Intake Total 720 ml 1200 ml 840 ml Balance 720 ml 1200 ml 840 ml Assessment & Plan Problem List: (1) Brief psychotic disorder ICD Code: F23 Assessment & Plan Estimated LOS: days patient remains confused somewhat paranoid and markedly labile please see medication Justification for Cont. Inpt. At this time patient will decompensate if placed in a lower level of care Discharge Planning To be determined Request HC Surrog/Guard Advoc?: Yes Rai Huggins MD Jan 28, 2017 13:22
[2017-01-28 19:06] VITALS: BP 119/74; PULSE 72; RESP 18; TEMP 97.5; O2SAT 98
[2017-01-28] MEDS: POLYETHYLENE GLYCOL 17 GM PKG PO SCH (21:00)
[2017-01-28] MEDS: BENZOCAINE-MENTHOL (SUGAR FREE) 15 MG-3.6 MG LOZENGE BUCCAL PRN (21:03)
[2017-01-28] MEDS: MIRTAZAPINE 15 MG TAB PO SCH (21:04)
[2017-01-29 06:02] VITALS: BP 144/72; PULSE 60; RESP 18; TEMP 97.5
[2017-01-29 08:35] LABS: AUTOMATED NEUTROPHIL # 3.6 TH/MM3 (1.8-7.7); BASOPHIL % 0.8 % (0.0-2.0); EOSINOPHIL # 0.2 TH/MM3 (0-0.4); EOSINOPHIL % 3.7 % (0.0-4.0); HEMATOCRIT 41.4 % (35.0-46.0); HEMO FLAGS DIFF FINAL; LYMPH % 31.8 % (9.0-44.0); MEAN CELL VOLUME 84.8 FL (80.0-100.0); MEAN CORPUSCULAR HEMOGLOBIN 28.3 PG (27.0-34.0); MEAN CORPUSCULAR HGB CONC 33.3 % (32.0-36.0); MONO % 7.3 % (0.0-8.0); NEUT % 56.4 % (16.0-70.0); PLATELET COUNT 166 TH/MM3 (150-450); RED BLOOD COUNT 4.88 MIL/MM3 (4.00-5.30); WHITE BLOOD COUNT 6.4 TH/MM3 (4.0-11.0)
[2017-01-29 08:46] LABS: BICARBONATE 31.1 MEQ/L (21.0-32.0)
[2017-01-29] MEDS: CHOLECALCIFEROL (VIT D3) 400 UNIT TAB PO SCH (08:53)
[2017-01-29] MEDS: CITALOPRAM HYDROBROMIDE 40 MG TAB PO SCH (08:54)
[2017-01-29] MEDS: QUEtiapine FUMARATE 25 MG TAB PO SCH ×2 (08:54→20:30)
--- NOTE | 2017-01-29 11:36 | HHI.PYPN ---
Subjective Remarks Patient seen in [place] with medical student Leticia. Chart review. Patient continues to be quite labile with her emotions. Though at this time she is pleasant with me. She is also quite vigilant to any perceived slights related to my relationship with her. Patient compliant medications. Review of Systems Except as stated in HPI: all other systems reviewed are Neg Objective Alert: Yes [place]: Person Mood: Anxious, Calm, Depressed Affect: Labile Memory Intact: Comment Hallucinations: Other (appears less internally preoccupied) Delusions: Yes Delusion Type: Paranoid (denies) Suicidal: Ideation Homicidal: Ideation Insight/Judgement Very poor Labs Test 01/29/17 07:01 White Blood Count 6.4 TH/MM3 Red Blood Count 4.88 MIL/MM3 Hemoglobin 13.8 GM/DL Hematocrit 41.4 % Mean Corpuscular Volume 84.8 FL Mean Corpuscular Hemoglobin 28.3 PG Mean Corpuscular Hemoglobin 33.3 % Concent Red Cell Distribution Width 14.0 % Platelet Count 166 TH/MM3 Mean Platelet Volume 7.3 FL Neutrophils (%) (Auto) 56.4 % Lymphocytes (%) (Auto) 31.8 % Monocytes (%) (Auto) 7.3 % Eosinophils (%) (Auto) 3.7 % Basophils (%) (Auto) 0.8 % Neutrophils # (Auto) 3.6 TH/MM3 Lymphocytes # (Auto) 2.0 TH/MM3 Monocytes # (Auto) 0.5 TH/MM3 Eosinophils # (Auto) 0.2 TH/MM3 Basophils # (Auto) 0.0 TH/MM3 CBC Comment DIFF FINAL Differential Comment Sodium Level 144 MEQ/L Potassium Level 4.0 MEQ/L Chloride Level 105 MEQ/L Carbon Dioxide Level 31.1 MEQ/L Anion Gap 8 MEQ/L Blood Urea Nitrogen 15 MG/DL Creatinine 0.72 MG/DL Estimat Glomerular Filtration 82 ML/MIN Rate Random Glucose 79 MG/DL Calcium Level 9.1 MG/DL Vitals/IOs Vital Signs Date Time Temp Pulse Resp B/P Pulse Ox O2 Delivery O2 Flow Rate FiO2 01/29/17 06:02 97.5 60 18 144/72 01/28/17 19:06 98 Intake and Output 01/28/17 01/28/17 01/29/17 08:00 16:00 00:00 Intake Total 480 ml 840 ml 840 ml Output Total 1 ml Balance 479 ml 840 ml 840 ml Assessment & Plan Problem List: (1) Brief psychotic disorder ICD Code: F23 Assessment & Plan Estimated LOS: days patient is quite labile with the move, as also the difficulty with her memory and the confusion. I question whether her diagnosis may be better subsumed under a dementing process. We'll continue to consider that Justification for Cont. Inpt. At this time patient will decompensate then placed in the lower level of care Discharge Planning To be determined Request HC Surrog/Guard Advoc?: Yes Rai Huggins MD Jan 29, 2017 11:36
[2017-01-29 19:17] VITALS: BP 128/72; PULSE 62; RESP 18; TEMP 97.5; O2SAT 96
[2017-01-29] MEDS: hydrOXYzine HCL 50 MG TAB PO PRN (20:29)
[2017-01-29] MEDS: MIRTAZAPINE 15 MG TAB PO SCH (20:30)
[2017-01-29] MEDS: POLYETHYLENE GLYCOL 17 GM PKG PO SCH (20:31)
[2017-01-30 05:24] VITALS: BP 122/60; PULSE 56; RESP 16; TEMP 97.7; O2SAT 98
--- NOTE | 2017-01-30 07:20 | HHI.PR ---
Subjective Remarks Patient seen at bedside resting comfortably. No complaints of pain or SOB Objective Vital Signs Date Time Temp Pulse Resp B/P Pulse Ox O2 Delivery O2 Flow Rate FiO2 01/30/17 05:24 97.7 56 16 122/60 98 01/29/17 19:17 97.5 62 18 128/72 96 I/O 01/29/17 01/29/17 01/29/17 01/30/17 01/30/17 01/30/17 07:00 15:00 23:00 07:00 15:00 23:00 Intake Total 1560 ml 0 ml Balance 1560 ml 0 ml Intake Oral 1560 ml 0 ml # Voids 1 2 0 # Bowel Movements 0 Result Diagram: 01/29/17 0701/29/17 07 Other Results GENERAL: Alert and pleasant SKIN: Warm and dry. HEAD: Normocephalic. EYES: No scleral icterus. No injection or drainage. NECK: Supple, trachea midline. No JVD or lymphadenopathy. CARDIOVASCULAR: Regular rate and rhythm without murmurs, gallops, or rubs. RESPIRATORY: Breath sounds equal bilaterally. No accessory muscle use. GASTROINTESTINAL: Abdomen soft, non-tender, nondistended. MUSCULOSKELETAL: No cyanosis, or edema. BACK: Nontender without obvious deformity. No CVA tenderness. Objective Remarks Current Medications Medications (Trade) Dose Ordered Sig/Minal Route Start Time Stop Time Status Last Admin (Tylenol) 650 mg Q4H PRN PO 12/31/16 16:45 01/27/17 21:00 (Milk Of Magnesia Liq) 30 ml DAILY PRN PO 12/31/16 16:45 (Mag-Al Plus Susp Liq) 30 ml Q6H PRN PO 12/31/16 16:45 01/19/17 13:40 (CeleXA) 40 mg DAILY PO 01/06/17 16:00 01/29/17 08:54 (Benadryl) 50 mg HS PRN PO 01/05/17 15:15 01/27/17 22:08 (Atarax) 50 mg Q6H PRN PO 01/05/17 15:15 01/29/17 20:29 (SEROquel) 50 mg BID PO 01/06/17 21:00 01/29/17 20:30 (Miralax) 17 gm HS PO 01/13/17 21:00 01/29/17 20:31 (Vitamin D3) 400 units DAILY PO 01/15/17 09:00 01/29/17 08:53 (Cepacol Extra Shahnaz (Sugar Free)) 1 lozenge UNSCH PRN BUCCAL 01/16/17 23:15 01/28/17 21:03 (Remeron) 30 mg HS PO 01/28/17 21:00 01/29/17 20:30 Assessment and Plan Problem List: (1) Altered mental status, unspecified Status: Acute Plan: Patient is alert and cooperative with current treatment. Per psych note patient is quite labile with mood and also has difficulty with her memory and the confusion. (2) Major depressive disorder, recurrent episode, moderate with mixed features Status: Chronic Plan: Well controlled. Psych managing (3) Hypertension Status: Chronic Plan: Blood pressure well controlled. No on any Blood pressure medication. Assessment and Plan Assessment and plan discussed with Dr. Guidry. Problem Qualifiers (1) Hypertension: Qualified Code: I10 - Essential hypertension Diana Walden Jan 30, 2017 07:20
[2017-01-30] MEDS: CITALOPRAM HYDROBROMIDE 40 MG TAB PO SCH (08:22)
[2017-01-30] MEDS: CHOLECALCIFEROL (VIT D3) 400 UNIT TAB PO SCH (08:22)
[2017-01-30] MEDS: QUEtiapine FUMARATE 25 MG TAB PO SCH ×4 (08:22→20:18)
--- NOTE | 2017-01-30 11:10 | HHI.PYPN ---
Subjective Remarks Patient seen in [place] and also in her room. Remains somewhat silly labile childlike carrying a small stuffed animal. Being intrusive with that, waving it in my face. Today having some difficulty taking redirection and questioning her about her memory without becoming emotionally labile and upset. Will increase scheduled Seroquel to 3 times a day Review of Systems Except as stated in HPI: all other systems reviewed are Neg Objective Alert: Yes [place]: Person Mood: Anxious, Calm, Depressed Affect: Labile Memory Intact: Comment Hallucinations: Other (appears less internally preoccupied) Delusions: Yes Delusion Type: Paranoid (mildly) Suicidal: Ideation Homicidal: Ideation Insight/Judgement Very poor Vitals/IOs Vital Signs Date Time Temp Pulse Resp B/P Pulse Ox O2 Delivery O2 Flow Rate FiO2 01/30/17 05:24 97.7 56 16 122/60 98 Intake and Output 01/29/17 01/29/17 01/30/17 08:00 16:00 00:00 Intake Total 1560 ml Balance 1560 ml Assessment & Plan Problem List: (1) Brief psychotic disorder ICD Code: F23 Assessment & Plan Estimated LOS: days patient remains labile intrusive little insight also continue somewhat confused. See medication adjustment above Justification for Cont. Inpt. At this time patient will decompensate with placed in a lower level of care Discharge Planning To be determined Request HC Surrog/Guard Advoc?: Yes Rai Huggins MD Jan 30, 2017 11:10
[2017-01-30 18:39] VITALS: BP 118/63; PULSE 76; RESP 17; TEMP 98.2; O2SAT 97
[2017-01-30] MEDS: hydrOXYzine HCL 50 MG TAB PO PRN (20:18)
[2017-01-30] MEDS: MIRTAZAPINE 15 MG TAB PO SCH (20:18)
[2017-01-30] MEDS: POLYETHYLENE GLYCOL 17 GM PKG PO SCH (20:19)
[2017-01-31 05:59] VITALS: BP 147/78; PULSE 75; RESP 16; TEMP 98.1; O2SAT 96
[2017-01-31] MEDS: CITALOPRAM HYDROBROMIDE 40 MG TAB PO SCH (09:18)
[2017-01-31] MEDS: CHOLECALCIFEROL (VIT D3) 400 UNIT TAB PO SCH (09:18)
[2017-01-31] MEDS: QUEtiapine FUMARATE 25 MG TAB PO SCH ×2 (13:54→17:15)
--- NOTE | 2017-01-31 14:36 | HHI.PYPN ---
Subjective Remarks Pt seen and discussed with staff. She has been compliant and cooperative with care. Compliant with medication and deneis side effects. Staff report more intrusive behavior today. She is noted to exhibit some paranoia today during interview. No SI/HI. Objective Alert: Yes [place]: Person Mood: Calm, Depressed Affect: Restricted Memory Intact: Comment (fair) Hallucinations: Other (none) Delusions: Yes Delusion Type: Paranoid (mild) Suicidal: Ideation (denies) Homicidal: Ideation (denies) Insight/Judgement poor Vitals/IOs Vital Signs Date Time Temp Pulse Resp B/P Pulse Ox O2 Delivery O2 Flow Rate FiO2 01/31/17 05:59 98.1 75 16 147/78 96 Intake and Output 01/30/17 01/30/17 01/31/17 08:00 16:00 00:00 Intake Total 0 ml 2880 ml Balance 0 ml 2880 ml Assessment & Plan Problem List: (1) Brief psychotic disorder ICD Code: F23 Assessment & Plan Continue current tx plan. Estimated LOS: days Justification for Cont. Inpt. impairments in self care and reality construction. Request HC Surrog/Guard Advoc?: Yes Olivia Forbes MD Jan 31, 2017 14:36
[2017-01-31] MEDS: BENZOCAINE-MENTHOL (SUGAR FREE) 15 MG-3.6 MG LOZENGE BUCCAL PRN ×2 (17:33→20:17)
[2017-01-31 18:05] VITALS: BP 111/70; PULSE 80; RESP 18; TEMP 97.3; O2SAT 96
[2017-01-31] MEDS: hydrOXYzine HCL 50 MG TAB PO PRN (20:17)
[2017-01-31] MEDS: MIRTAZAPINE 15 MG TAB PO SCH (20:17)
[2017-01-31] MEDS: POLYETHYLENE GLYCOL 17 GM PKG PO SCH (20:19)
[2017-02-01 06:00] VITALS: BP 130/81; PULSE 58; RESP 18; TEMP 98.1; O2SAT 99
[2017-02-01] MEDS: CHOLECALCIFEROL (VIT D3) 400 UNIT TAB PO SCH (08:44)
[2017-02-01] MEDS: QUEtiapine FUMARATE 25 MG TAB PO SCH ×3 (08:44→18:50)
[2017-02-01] MEDS: CITALOPRAM HYDROBROMIDE 40 MG TAB PO SCH (08:44)
[2017-02-01] MEDS: BENZOCAINE-MENTHOL (SUGAR FREE) 15 MG-3.6 MG LOZENGE BUCCAL PRN (08:57)
--- NOTE | 2017-02-01 15:21 | HHI.PYPN ---
Subjective Remarks Pt seen and discussed with staff. She attempted to feed peer but responded to redirection from staff. She was confused last night and became lost on unit trying to find her room. Compliant with care and medications. No side effects. Objective Alert: Yes [place]: Person Mood: Calm, Depressed Affect: Restricted Memory Intact: Comment (fair) Hallucinations: Other (none) Delusions: No Delusion Type: Other Suicidal: Ideation (denies) Homicidal: Ideation (denies) Insight/Judgement poor Vitals/IOs Vital Signs Date Time Temp Pulse Resp B/P Pulse Ox O2 Delivery O2 Flow Rate FiO2 02/01/17 06:00 98.1 58 18 130/81 99 Intake and Output 01/31/17 01/31/17 01/31/17 07:59 15:59 23:59 Intake Total 720 ml 2880 ml Balance 720 ml 2880 ml Assessment & Plan Problem List: (1) Brief psychotic disorder ICD Code: F23 Assessment & Plan Continue current tx plan. Estimated LOS: days Justification for Cont. Inpt. risk of decompensation Request HC Surrog/Guard Advoc?: Yes Olivia Forbes MD Feb 01, 2017 15:21
[2017-02-01 18:24] VITALS: BP 123/58; PULSE 70; RESP 17; TEMP 97.9; O2SAT 98
[2017-02-01] MEDS: POLYETHYLENE GLYCOL 17 GM PKG PO SCH (20:45)
[2017-02-01] MEDS: MIRTAZAPINE 15 MG TAB PO SCH (20:46)
[2017-02-02 05:51] VITALS: BP 136/62; PULSE 60; RESP 16; TEMP 97.9; O2SAT 100
[2017-02-02] MEDS: QUEtiapine FUMARATE 25 MG TAB PO SCH ×3 (09:04→18:00)
[2017-02-02] MEDS: CHOLECALCIFEROL (VIT D3) 400 UNIT TAB PO SCH (09:04)
[2017-02-02] MEDS: CITALOPRAM HYDROBROMIDE 40 MG TAB PO SCH (09:04)
--- NOTE | 2017-02-02 15:32 | HHI.PYPN ---
Subjective Remarks Patient discussed with treatment team, chart reviewed, patient seen on unit. Patient somewhat calmer today though still needing and somewhat childlike. Remains diffusely confused. She is compliant with her medications. For now continue treatment Review of Systems Except as stated in HPI: all other systems reviewed are Neg Objective Alert: Yes [place]: Person Mood: Calm, Depressed Affect: Restricted Memory Intact: Comment (fair) Hallucinations: Other (none) Delusions: No Delusion Type: Other Suicidal: Ideation (denies) Homicidal: Ideation (denies) Insight/Judgement Very poor Vitals/IOs Vital Signs Date Time Temp Pulse Resp B/P Pulse Ox O2 Delivery O2 Flow Rate FiO2 02/02/17 05:51 97.9 60 16 136/62 100 Intake and Output 02/01/17 02/01/17 02/02/17 08:00 16:00 00:00 Intake Total 1040 ml 360 ml Balance 1040 ml 360 ml Assessment & Plan Problem List: (1) Brief psychotic disorder ICD Code: F23 Assessment & Plan Estimated LOS: days patient continues somewhat confused disoriented and childlike and labile. Compliant medications. For now continue treatment Justification for Cont. Inpt. At this time patient will decompensate if placed on lower level of care Discharge Planning To be determined Request HC Surrog/Guard Advoc?: Yes Rai Huggins MD Feb 02, 2017 15:32
[2017-02-02 18:51] VITALS: BP 127/57; PULSE 69; RESP 16; TEMP 96.8; O2SAT 97
[2017-02-02] MEDS: POLYETHYLENE GLYCOL 17 GM PKG PO SCH (20:50)
[2017-02-02] MEDS: MIRTAZAPINE 15 MG TAB PO SCH (20:50)
[2017-02-03 06:11] VITALS: BP 135/73; PULSE 68; RESP 16; TEMP 97.5; O2SAT 98
[2017-02-03] MEDS: CHOLECALCIFEROL (VIT D3) 400 UNIT TAB PO SCH (08:44)
[2017-02-03] MEDS: QUEtiapine FUMARATE 25 MG TAB PO SCH ×3 (08:44→17:02)
[2017-02-03] MEDS: CITALOPRAM HYDROBROMIDE 40 MG TAB PO SCH (08:44)
--- NOTE | 2017-02-03 10:42 | HHI.PR ---
Subjective Remarks Patient seen at bedside resting comfortably. No complaints. Objective Vital Signs Date Time Temp Pulse Resp B/P Pulse Ox O2 Delivery O2 Flow Rate FiO2 02/03/17 06:11 97.5 68 16 135/73 98 02/02/17 18:51 96.8 69 16 127/57 97 I/O 02/02/17 02/02/17 02/02/17 02/03/17 02/03/17 02/03/17 07:00 15:00 23:00 07:00 15:00 23:00 Intake Total 360 ml 1350 ml Balance 360 ml 1350 ml Intake Oral 360 ml 1350 ml # Voids 3 2 2 Other Results GENERAL: Calm and cooperative SKIN: Warm and dry. HEAD: Normocephalic. EYES: No scleral icterus. No injection or drainage. NECK: Supple, trachea midline. No JVD or lymphadenopathy. CARDIOVASCULAR: Regular rate and rhythm without murmurs, gallops, or rubs. RESPIRATORY: Breath sounds equal bilaterally. No accessory muscle use. GASTROINTESTINAL: Abdomen soft, non-tender, nondistended. MUSCULOSKELETAL: No cyanosis, or edema. BACK: Nontender without obvious deformity. No CVA tenderness. Objective Remarks Current Medications Medications (Trade) Dose Ordered Sig/Minal Route Start Time Stop Time Status Last Admin (Tylenol) 650 mg Q4H PRN PO 12/31/16 16:45 01/27/17 21:00 (Milk Of Magnesia Liq) 30 ml DAILY PRN PO 12/31/16 16:45 (Mag-Al Plus Susp Liq) 30 ml Q6H PRN PO 12/31/16 16:45 01/19/17 13:40 (CeleXA) 40 mg DAILY PO 01/06/17 16:00 01/29/17 08:54 (Benadryl) 50 mg HS PRN PO 01/05/17 15:15 01/27/17 22:08 (Atarax) 50 mg Q6H PRN PO 01/05/17 15:15 01/29/17 20:29 (SEROquel) 50 mg BID PO 01/06/17 21:00 01/29/17 20:30 (Miralax) 17 gm HS PO 01/13/17 21:00 01/29/17 20:31 (Vitamin D3) 400 units DAILY PO 01/15/17 09:00 01/29/17 08:53 (Cepacol Extra Shahnaz (Sugar Free)) 1 lozenge UNSCH PRN BUCCAL 01/16/17 23:15 01/28/17 21:03 (Remeron) 30 mg HS PO 01/28/17 21:00 01/29/17 20:30 Medications and IVs Current Medications Medications (Trade) Dose Ordered Sig/Minal Route Start Time Stop Time Status Last Admin (Tylenol) 650 mg Q4H PRN PO 12/31/16 16:45 01/27/17 21:00 (Milk Of Magnesia Liq) 30 ml DAILY PRN PO 12/31/16 16:45 (Mag-Al Plus Susp Liq) 30 ml Q6H PRN PO 12/31/16 16:45 01/19/17 13:40 (CeleXA) 40 mg DAILY PO 01/06/17 16:00 02/03/17 08:44 (Benadryl) 50 mg HS PRN PO 01/05/17 15:15 01/27/17 22:08 (Atarax) 50 mg Q6H PRN PO 01/05/17 15:15 01/31/17 20:17 (Miralax) 17 gm HS PO 01/13/17 21:00 02/02/17 20:50 (Vitamin D3) 400 units DAILY PO 01/15/17 09:00 02/03/17 08:44 (Cepacol Extra Shahnaz (Sugar Free)) 1 lozenge UNSCH PRN BUCCAL 01/16/17 23:15 02/01/17 08:57 (Remeron) 30 mg HS PO 01/28/17 21:00 02/02/17 20:50 (SEROquel) 50 mg TID PO 01/30/17 13:00 02/03/17 08:44 Assessment and Plan Problem List: (1) Altered mental status, unspecified Status: Acute Plan: Patient is alert and cooperative with current treatment. Medication complaint (2) Major depressive disorder, recurrent episode, moderate with mixed features Status: Chronic Plan: Well controlled. Psych managing (3) Hypertension Status: Chronic Plan: Blood pressure well controlled. Not on any Blood pressure medication. Assessment and Plan Assessment and plan discussed with Dr. Guidry. Problem Qualifiers (1) Hypertension: Qualified Code: I10 - Essential hypertension Diana Walden Feb 03, 2017 10:42
--- NOTE | 2017-02-03 11:11 | HHI.PYPN ---
Subjective Remarks Patient seen in day room with nurse Yaneth, patient calm today not quite as labile or tearful., Compliant medications. Denies suicidality homicidality or voices or visions. For now continue treatment Review of Systems Except as stated in HPI: all other systems reviewed are Neg Objective Alert: Yes [place]: Person Mood: Calm, Depressed Affect: Restricted Memory Intact: Comment (fair) Hallucinations: Other (none) Delusions: No Delusion Type: Other Suicidal: Ideation (denies) Homicidal: Ideation (denies) Insight/Judgement Poor Vitals/IOs Vital Signs Date Time Temp Pulse Resp B/P Pulse Ox O2 Delivery O2 Flow Rate FiO2 02/03/17 06:11 97.5 68 16 135/73 98 Intake and Output 02/02/17 02/02/17 02/03/17 08:00 16:00 00:00 Intake Total 1350 ml Balance 1350 ml Assessment & Plan Problem List: (1) Brief psychotic disorder ICD Code: F23 Assessment & Plan Estimated LOS: days patient continues somewhat labile and confused, but no significant behavioral problems at this time, compliant medications Justification for Cont. Inpt. At this time patient will decompensate if placed in a lower level of care Discharge Planning To be determined Request HC Surrog/Guard Advoc?: Yes Rai Huggins MD Feb 03, 2017 11:11
[2017-02-03 20:21] VITALS: BP 128/80; PULSE 82; RESP 18; TEMP 97.7; O2SAT 98
[2017-02-03] MEDS: POLYETHYLENE GLYCOL 17 GM PKG PO SCH (21:00)
[2017-02-03] MEDS: MIRTAZAPINE 15 MG TAB PO SCH (21:00)
[2017-02-04 05:57] VITALS: BP 106/58; PULSE 64; RESP 15; TEMP 98.6; O2SAT 98
[2017-02-04] MEDS: QUEtiapine FUMARATE 25 MG TAB PO SCH ×2 (09:00→12:59)
[2017-02-04] MEDS: CHOLECALCIFEROL (VIT D3) 400 UNIT TAB PO SCH (09:00)
[2017-02-04] MEDS: CITALOPRAM HYDROBROMIDE 40 MG TAB PO SCH (09:00)
--- NOTE | 2017-02-04 12:16 | HHI.PYPN ---
Subjective Remarks Patient discussed with treatment team including diagnosis medication management , recommendations for placement, and discharge planning. Chart reviewed. Patient seen on unit. Patient continues childlike somewhat superficial and silly though smiling today. Compliant medications Review of Systems Except as stated in HPI: all other systems reviewed are Neg Objective Alert: Yes [place]: Person Mood: Calm, Other (mildly dysphoric) Affect: Other (good range and intensity) Memory Intact: Comment (fair) Hallucinations: Other (none) Delusions: No Delusion Type: Other Suicidal: Ideation (denies) Homicidal: Ideation (denies) Insight/Judgement Poor Vitals/IOs Vital Signs Date Time Temp Pulse Resp B/P Pulse Ox O2 Delivery O2 Flow Rate FiO2 02/04/17 05:57 98.6 64 15 106/58 98 Intake and Output 02/03/17 02/03/17 02/04/17 08:00 16:00 00:00 Intake Total 1830 ml Balance 1830 ml Assessment & Plan Problem List: (1) Brief psychotic disorder ICD Code: F23 Assessment & Plan Estimated LOS: days patient continues somewhat superficial with labile mood at times appears dependent on staff for patients behavior towards her. Compliant medications Justification for Cont. Inpt. At this time patient will decompensate if placed in a lower level of care Discharge Planning To be determined Request HC Surrog/Guard Advoc?: Yes Rai Huggins MD Feb 04, 2017 12:16
[2017-02-04] MEDS ORDERED: VITD400 PO (15:03)
[2017-02-04] MEDS ORDERED: MIRT30TA PO (15:03)
[2017-02-04] MEDS ORDERED: POLY17S PO (15:03)
[2017-02-04] MEDS ORDERED: SERO50TA PO (15:03)
[2017-02-04] MEDS ORDERED: CELE40TA PO (15:03)
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
== END 2017-02-04 16:20 | DRG 57 ==
LOC: PHED 10:10 → NEDA 16:39 → H250 20:41
PROVIDERS: ADMIT Psychiatry & Neurology Psychiatry; ATTEND Psychiatry & Neurology Psychiatry
DX: G30.8 Other Alzheimer's disease (principal); F02.81 Dementia in other diseases classified elsewhere, unspecified severity, with behavioral disturbance; F23 Brief psychotic disorder; F33.1 Major depressive disorder, recurrent, moderate; I10 Essential (primary) hypertension; G62.9 Polyneuropathy, unspecified; M10.9 Gout, unspecified; E78.5 Hyperlipidemia, unspecified; G25.81 Restless legs syndrome; M15.9 Polyosteoarthritis, unspecified; F41.9 Anxiety disorder, unspecified; K59.00 Constipation, unspecified; J02.9 Acute pharyngitis, unspecified; E87.6 Hypokalemia; Z63.4 Disappearance and death of family member; Z91.19 Patient's noncompliance with other medical treatment and regimen; Z87.891 Personal history of nicotine dependence
CPT/HCPCS: 70450; 80048; 80053; 80061; 80307; 80320; 81001; 82306; 82607; 83036; 84425; 84439; 84443; 85025; 87070; 99281; Q0163